=== PATIENT | male | born 1960 | race Caucasian/White ===

== ENCOUNTER 2016-12-08 16:44 | Emergency (ER) | payer OTHER ==
[~2016-12-08] VITALS: Ht 160 cm; Wt 91.7 kg
[~2016-12-08 16:44] MED LIST: AMLO-114 PO; ASPCH81X PO; LISI20TA3 PO; LPR25 PO; OMEP40CA PO; SUCR1TAB29 PO; ZNTT/150 PO
[2016-12-08 16:55] VITALS: TEMP 36.9; Ht 160 cm; Wt 91.7 kg
[2016-12-08] MEDS ORDERED: CLOP1TAB15 PO (16:55)
[2016-12-08] MEDS ORDERED: HYDR-4715 PO (16:55)
--- NOTE | 2016-12-08 17:14 | DIAGNOSTIC IMAGING REPORT ---
CHEST ONE VIEW PORTABLE CLINICAL HISTORY: Evaluate Fever/Sepsis dyspnea COMPARISON STUDY: 01/10/2016 FINDINGS: The bones soft tissues and hemidiaphragms are normal. The cardiomediastinal silhouette is normal. The lungs are clear. The pulmonary vasculature is normal. IMPRESSION: Negative chest. Electronically signed by: Rich Avitia M.D. 12/08/2016 5:13 PM Dictated Date/Time: 12/08/2016 5:12 PM
[2016-12-08 17:21] LABS: BASO % 0.5 %; BASO ABS # 0.03 K/uL (0-0.2); COMPLETE YES; EOS % 0.6 %; HEMATOCRIT 39.5 % (42-52); IG% 0.2 %; LYMPH % 16.2 %; LYMPH ABS # 1.05 K/uL (1.2-3.4); MEAN CELL VOLUME 81.6 fL (80-100); MEAN CORPUSCULAR HEMOGLOBIN 26.9 pg (25-34); MEAN CORPUSCULAR HGB CONC 32.9 g/dl (32-36); MEAN PLATELET VOLUME 10.5 fL (7.4-10.4); MONO % 13.2 %; NEUT % 69.3 %; PLATELET COUNT 332 K/uL (130-400); RED BLOOD COUNT 4.84 M/uL (4.7-6.1)
[2016-12-08 17:37] LABS: ALT/SGPT 17 U/L (12-78); AST/SGOT 13 U/L (15-37); BLOOD UREA NITROGEN 15 mg/dl (7-18); BUN/CREATININE RATIO 12.4 (10-20); CALCIUM 8.7 mg/dl (8.5-10.1); CARBON DIOXIDE 25 mmol/L (21-32); CHLORIDE 109 mmol/L (98-107); GLUCOSE 89 mg/dl (70-99); POTASSIUM 4.4 mmol/L (3.5-5.1); SODIUM 142 mmol/L (136-145)
[2016-12-08 17:48] LABS: ALKALINE PHOSPHATASE 109 U/L (45-117)
--- NOTE | 2016-12-08 17:50 | EMERGENCY ROOM VISIT NOTE ---
History Report prepared by Zahira: Deepka Bee Under the Supervision of: Dr. Ivan Knight D.O. First contact with patient: 16:51 Chief Complaint: CHEST PAIN Stated Complaint: CHEST PAIN Nursing Triage Summary: Pt having chest pain accompanied with shortness of breath. Chest briefly relieved with Nitro SL. PMH: [place], CVA, Aneurysm (Chest, head and abdomen per patient) History of Present Illness The patient is a 56 year old male who presents to the Emergency Room from the [facility] facility with complaints of resolving chest pain that started around 2 hours ago. He says he was getting in the shower when he got the chest pain. The patient notes that he was also short of breath and had pain going down his left arm. Per the nursing staff, the chest pain was relieved by Nitro. Currently, the patient says his pain is not bad. The patient has a history of a myocardial infarction, stroke, and aneurysm. Source of History: patient Onset: Around 2 hours ago Position: chest Timing: other (resolving) Modifying Factors (Relieving): other (Nitro) Associated Symptoms: + SOB Note: Associated symptoms: Pain down left arm. Review of Systems See HPI for pertinent positives & negatives. A total of 10 systems reviewed and were otherwise negative. Past Medical & Surgical Medical Problems: (1) Acute right-sided weakness (2) Chest pain (3) Left sided cerebral hemisphere cerebrovascular accident Family History Stroke Social History Smoking Status: Former Smoker Drug Use: none Occupation Status: other Current/Historical Medications Scheduled Amlodipine (Norvasc), 10 MG PO DAILY Clopidogrel (Plavix), 75 MG PO DAILY Hydralazine Hcl (Apresoline), 10 MG PO BID Lisinopril (Prinivil), 20 MG PO BID Metoprolol Tartrate (Lopressor), 50 MG PO BID Ranitidine (Zantac), 150 MG PO BID Allergies Coded Allergies: Hydrocodone (Verified Allergy, Unknown, unknown, 12/08/16) Tramadol (Verified Allergy, Unknown, unknown, 12/08/16) Physical Exam Vital Signs Date Time Temp Pulse Resp B/P Pulse Ox O2 Delivery O2 Flow Rate FiO2 12/08/16 18:02 73 18 112/80 96 12/08/16 16:55 36.9 63 18 118/84 100 Room Air Physical Exam CONSTITUTIONAL/VITAL SIGNS: Reviewed / noted above. GENERAL: Non-toxic in appearance. INTEGUMENTARY: Warm, dry, and [place]. HEAD: Normocephalic. EYES: without scleral icterus or trauma. ENT/OROPHARYNX: clear and moist. LYMPHADENOPATHY/NECK: Is supple without lymphadenopathy or meningismus. RESPIRATORY: Lungs clear and equal. CARDIOVASCULAR: Regular rate and rhythm. GI/ABDOMEN: Soft and nontender. No organomegaly or pulsatile mass. No rebound or guarding. Normal bowel sounds. EXTREMITIES: Warm and well perfused. BACK: No CVA tenderness. NEUROLOGICAL: Intact without focal deficits. PSYCHIATRIC: normal affect. MUSCULOSKELETAL: Normally developed with good muscle tone. Medical Decision & Procedures ER Provider Diagnostic Interpretation: X ray results and stated below per my interpretation and radiology interpretation. CHEST ONE VIEW PORTABLE CLINICAL HISTORY: Evaluate Fever/Sepsis dyspnea COMPARISON STUDY: 01/10/2016 FINDINGS: The bones soft tissues and hemidiaphragms are normal. The cardiomediastinal silhouette is normal. The lungs are clear. The pulmonary vasculature is normal. IMPRESSION: Negative chest. Electronically signed by: Rich Avitia M.D. 12/08/2016 5:13 PM Dictated Date/Time: 12/08/2016 5:12 PM Laboratory Results 12/08/16 17:05 Red Blood Count 4.84, Mean Corpuscular Volume 81.6, Mean Corpuscular Hemoglobin 26.9, Mean Corpuscular Hemoglobin Concent 32.9, Mean Platelet Volume 10.5, Neutrophils (%) (Auto) 69.3, Lymphocytes (%) (Auto) 16.2, Monocytes (%) (Auto) 13.2, Eosinophils (%) (Auto) 0.6, Basophils (%) (Auto) 0.5, Neutrophils # (Auto ) 4.51, Lymphocytes # (Auto) 1.05, Monocytes # (Auto) 0.86, Eosinophils # (Auto ) 0.04, Basophils # (Auto) 0.03 12/08/16 17:05 Test 12/08/16 17:05 12/08/16 17:28 White Blood Count 6.50 K/uL (4.8-10.8) Red Blood Count 4.84 M/uL (4.7-6.1) Hemoglobin 13.0 g/dL (14.0-18.0) Hematocrit 39.5 % (42-52) Mean Corpuscular Volume 81.6 fL (80-100) Mean Corpuscular Hemoglobin 26.9 pg (25-34) Mean Corpuscular Hemoglobin Concent 32.9 g/dl (32-36) Platelet Count 332 K/uL (130-400) Mean Platelet Volume 10.5 fL (7.4-10.4) Neutrophils (%) (Auto) 69.3 % Lymphocytes (%) (Auto) 16.2 % Monocytes (%) (Auto) 13.2 % Eosinophils (%) (Auto) 0.6 % Basophils (%) (Auto) 0.5 % Neutrophils # (Auto) 4.51 K/uL (1.4-6.5) Lymphocytes # (Auto) 1.05 K/uL (1.2-3.4) Monocytes # (Auto) 0.86 K/uL (0.11-0.59) Eosinophils # (Auto) 0.04 K/uL (0-0.5) Basophils # (Auto) 0.03 K/uL (0-0.2) RDW Standard Deviation 42.9 fL (36.4-46.3) RDW Coefficient of Variation 14.4 % (11.5-14.5) Immature Granulocyte % (Auto) 0.2 % Immature Granulocyte # (Auto) 0.01 K/uL (0.00-0.02) Anion Gap 8.0 mmol/L (3-11) Est Creatinine Clear Calc Drug Dose 69.7 ml/min Estimated GFR () 78.4 Estimated GFR (Non- 67.7 BUN/Creatinine Ratio 12.4 (10-20) Calcium Level 8.7 mg/dl (8.5-10.1) Total Bilirubin 1.0 mg/dl (0.2-1) Direct Bilirubin 0.2 mg/dl (0-0.2) Aspartate Amino Transf (AST/SGOT) 13 U/L (15-37) Alanine Aminotransferase (ALT/SGPT) 17 U/L (12-78) Alkaline Phosphatase 109 U/L (45-117) Total Creatine Kinase 95 U/L (39-308) Creatine Kinase MB < 0.5 ng/ml (0.5-3.6) Creatine Kinase MB Ratio (0-3.0) Troponin I < 0.015 ng/ml (0-0.045) Total Protein 7.4 gm/dl (6.4-8.2) Albumin 3.8 gm/dl (3.4-5.0) Lipase 146 U/L (73-393) Thyroid Stimulating Hormone (TSH) 2.310 uIu/ml (0.300-4.500) Laboratory results as stated above per my review. ECG Indication: chest pain Rate (beats per minute): 59 Rhythm: sinus rhythm Findings: no ectopy, other (no acute injury) ED Course 170: Previous medical records were reviewed. The patient was evaluated in room A2. A complete history and physical examination was performed. 175: On reevaluation, the patient is resting comfortably. I discussed the results and findings with the patient. He verbalized agreement of the treatment plan. He was discharged home. Medical Decision the differential was considered includes acute myocardial infarction, acute coronary syndrome, myocarditis, pericarditis, pericardial effusions /tamponade, esophageal perforation, thoracic aortic dissection, pulmonary embolism, pneumonia, pneumothorax, pancreatitis, shingles, acute cholecystitis, perforated abdominal viscus. Medication Reconciliation: I attest that I have personally reviewed the patient' s current medication list. Blood pressure Screening: Patient was found to have normal blood pressure on screening and does not require follow-up. This is a 56-year-old male who presents to the ED with a chief complaint of chest pain and shortness of breath. The patient states the symptoms started around 3 PM. They improved after some nitroglycerin. The patient states that his symptoms also multiple left arm. He was transported here by EMS. He was given the nitroglycerin by them. The patient has a normal exam. He is in no distress. His 12-lead EKG reveals a normal sinus rhythm without acute injury or ectopy. Chest x-ray did not show acute disease. CBC and complete metabolic panel are normal. Troponin is negative. The patient was told the results. He is felt to be stable for discharge and outpatient follow-up. Impression Primary Impression: Retrosternal chest pain Scribe Attestation The scribe's documentation has been prepared under my direction and personally reviewed by me in its entirety. I confirm that the note above accurately reflects all work, treatment, procedures, and medical decision making performed by me. Departure Information Dispostion Home / Self-Care Referrals Margaret MEREDITH (PCP) Patient Instructions Chest Pain - [facility], [facility] Additional Instructions Follow-up with your doctor for further care and evaluation in 1-2 days. Return to the emergency department for worsening or new symptoms or any concerns. You have been examined and treated today on an emergency basis only. This is not a substitute for, or an effort to provide, complete comprehensive medical care. It is impossible to recognize and treat all injuries or illnesses in a single emergency department visit. It is therefore important that you follow up closely with your doctor. Call as soon as possible for an appointment.
[2016-12-08 18:02] VITALS: BP 112/80; PULSE 73; O2SAT 96
[2017-04-02] MEDS ORDERED: VERA1TAB52 PO (12:53)
[2017-04-02] MEDS ORDERED: ONDA8TAB62 SL (12:53)
[2017-04-02] MEDS ORDERED: ASPEC81 PO (12:53)
[2017-04-02] MEDS ORDERED: LPR25 PO (12:53)
[2017-04-02] MEDS ORDERED: METH4PAK PO (12:53)
[2017-04-02] MEDS ORDERED: BUTA1CAP17 PO (12:53)
[2017-04-02] MEDS ORDERED: LPT40 PO (12:53)
[2017-04-02] MEDS ORDERED: LISI20TA3 PO (12:53)
== END 2016-12-08 18:07 | disposition home or self-care (01) ==
LOC: EDBD 16:44 → C.EDA 16:46
DX: R07.2 Precordial pain (principal); Z86.73 Personal history of transient ischemic attack (TIA), and cerebral infarction without residual deficits; Z87.891 Personal history of nicotine dependence; Z79.899 Other long term (current) drug therapy; Z88.5 Allergy status to narcotic agent; Z88.8 Allergy status to other drugs, medicaments and biological substances; Z82.3 Family history of stroke

== ENCOUNTER 2017-03-29 17:42 | Observation (INO) | payer OTHER ==
[~2017-03-29] VITALS: Ht 160 cm; Wt 93.8 kg
[~2017-03-29 17:42] MED LIST changes: -ASPCH81X PO; +CLOP1TAB15 PO; +HYDR-4715 PO; -OMEP40CA PO; -SUCR1TAB29 PO
[2017-03-29] MEDS ORDERED: SODIUM CHLORIDE 0.9% 1000ML 1,000 ML IV SCH (18:18)
--- NOTE | 2017-03-29 18:38 | EMERGENCY ROOM VISIT NOTE ---
History First contact with patient: 18:01 Chief Complaint: NEURO SYMPTOMS Stated Complaint: CVA SX Nursing Triage Summary: Pt arrives by ALS from [facility] for right facial numbness and right hand numbness, left sided headache. Vision decreased in ight eye per pt. Symptom started yesterday, not improving. Pt AAO x4. Pt reports Stroke last January, deficits to right arm and right leg from that. Pt is to be on Plavix but has refused to take since Aug. "All that did was give me nosebleeds". Hx HTN History of Present Illness This patient is a 56-year-old male that presents to the emergency department with complaints of right-sided facial and hand numbness and slurred speech that he noticed last night before bed. He also woke up with a headache this morning at approximately 9 AM. He is experiencing the headache on the left side of his head. He denies any visual disturbances. No chest pain or shortness of breath. No heart palpitations. He is also experiencing blurred vision in the right eye. The patient does have a history of a stroke approximately 1 year ago. He has residual right-sided weakness from his stroke. Review of Systems 10 system review performed and negative unless noted in HPI or below Past Medical/Surgical History Medical Problems: (1) Acute right-sided weakness (2) Chest pain (3) CVA (cerebral vascular accident) (4) Left sided cerebral hemisphere cerebrovascular accident Family History Stroke Social History Smoking Status: Former Smoker Drug Use: none Occupation Status: other Current/Historical Medications Scheduled Amlodipine (Norvasc), 10 MG PO DAILY Clopidogrel (Plavix), 75 MG PO DAILY Hydralazine Hcl (Apresoline), 10 MG PO BID Lisinopril (Prinivil), 20 MG PO BID Metoprolol Tartrate (Lopressor), 50 MG PO BID Physical Exam Vital Signs Date Time Temp Pulse Resp B/P (MAP) Pulse Ox O2 Delivery O2 Flow Rate FiO2 03/29/17 19:39 66 18 135/96 94 Room Air 03/29/17 19:09 67 03/29/17 17:59 37.0 84 18 157/104 96 Room Air 03/29/17 17:59 97 Room Air Physical Exam VITALS: Vitals are noted on the nurse's note and reviewed by myself. Vital signs stable. GENERAL: 56-year-old male, in no acute distress, nondiaphoretic, well-developed well-nourished. SKIN: The skin was without rashes, erythema, edema, or bruising. HEAD: Normocephalic atraumatic. EARS: External auditory canals clear, tympanic membranes pearly ruelas without erythema or effusion bilaterally. EYES: Pupils equal round and reactive to light and accommodation. Extraocular movements intact. MOUTH: Tongue deviation noted to the right NECK: No JVD. HEART: Regular rate and rhythm without murmurs gallops or rubs. LUNGS: Clear to auscultation bilaterally without wheezes, rales or rhonchi. No accessory muscle use. ABDOMEN: Positive bowel sounds x 4.Soft, nontender, without organomegaly. No guarding or rebound tenderness. MUSCULOSKELETAL: +1 nonpitting edema in the lower extremities without any erythema, tenderness or warmth appreciated. NEURO: Patient was alert and oriented to person place and time. Slurred speech noted. Left facial droop noted. Tongue deviation as noted above. Right arm and right leg weakness noted-patient says this is not new. Medical Decision & Procedures ER Provider Diagnostic Interpretation: Patient Name: IRSAEL JENNINGS [id number] Unit Number: [id number] Dictated: 03/29/171922 Transcribed: 03/29/171922 MS Printed Date/Time: [~ rep prt dt]/[~ rep prt tm] [~ rep ct labl] - [~ rep ct ivnm] [facility] [place] [address] Dictated: 03/29/171922 Transcribed: 03/29/171922 MS Printed Date/Time: [~ rep prt dt]/[~ rep prt tm] [~ rep ct labl] - [~ rep ct ivnm] HEAD WITHOUT CONTRAST (CT) CT DOSE: 601.98 mGy.cm HISTORY: Mental status change Stroke TECHNIQUE: Multiaxial CT images of the head were performed without the use of intravenous contrast. A dose lowering technique was utilized adhering to the principles of ALARA. Comparison: 02/10/2016 Findings: The paranasal sinuses and mastoid air cells are clear. Old right cerebellar infarct. Normal density characteristics of the cerebellar as well as cerebral hemispheres. No evidence for acute intracranial hemorrhage. Impression: No acute process. No change from the prior exam. The above report was generated using voice recognition software. It may contain grammatical, syntax or spelling errors. Electronically signed by: Rich Avitia M.D. 03/29/2017 7:24 PM Dictated Date/Time: 03/29/2017 7:23 PM The status of this report is Signed. Draft = Not yet reviewed or approved by Radiologist. Signed = Reviewed and approved by Radiologist. <AttendingPhy></AttendingPhy> <FamilyPhy>SCI,Margaret</FamilyPhy> <PrimaryPhy>SCI, Margaret</PrimaryPhy> <UnitNumber>[id number]</UnitNumber> <VisitNumber> [id number]</VisitNumber> <PatientName>ISRAEL JENNINGS [id number]</PatientName> < DateOfBirth>1960</DateOfBirth> <Location>[facility]</Location> <ServiceDate></ServiceDate> <MNE>ESINDI</MNE> <OrderingPhy>Tiffany Gao PA-C</ OrderingPhy> <OrderingPhyMNE>f rep ord dr virgen</OrderingPhyMNE> <DictatingPhyMNE> f rep dict dr virgen</DictatingPhyMNE> <CCListMNE>f rep ct mne</CCListMNE> < AdmittingPhyMNE>f pt admit dr virgen</AdmittingPhyMNE> <AttendingPhyMNE>f pt attend dr virgen</AttendingPhyMNE> <ConsultingPhyMNE>f pt consult dr virgen</ConsultingPhyMNE> <FamilyPhyMNE>f pt fam dr virgen</FamilyPhyMNE> <OtherPhyMNE>f pt other dr virgen</OtherPhyMNE> < PrimaryPhyMNE>f pt prim care dr virgen</PrimaryPhyMNE> <ReferringPhyMNE>f pt referring dr virgen</ReferringPhyMNE> Patient Name: ISRAEL JENNINGS [id number] Unit Number: [id number] Dictated: 03/29/171914 Transcribed: 03/29/171914 MS Printed Date/Time: [~ rep prt dt]/[~ rep prt tm] [~ rep ct labl] - [~ rep ct ivnm] [facility] [place] [address] Dictated: 03/29/171914 Transcribed: 03/29/171914 MS Printed Date/Time: [~ rep prt dt]/[~ rep prt tm] [~ rep ct labl] - [~ rep ct ivnm] CHEST ONE VIEW PORTABLE CLINICAL HISTORY: cava sx mental status change COMPARISON STUDY: 12/08/2016 FINDINGS: The bones soft tissues and hemidiaphragms are normal. The cardiomediastinal silhouette is normal. The lungs are clear. The pulmonary vasculature is normal. IMPRESSION: Negative chest. The above report was generated using voice recognition software. It may contain grammatical, syntax or spelling errors. Electronically signed by: Rich Avitia M.D. 03/29/2017 7:15 PM Dictated Date/Time: 03/29/2017 7:15 PM The status of this report is Signed. Draft = Not yet reviewed or approved by Radiologist. Signed = Reviewed and approved by Radiologist. <AttendingPhy></AttendingPhy> <FamilyPhy>SCIAlmasMargaret</FamilyPhy> <PrimaryPhy>SCIAlmasMargaret</PrimaryPhy> <UnitNumber>[id number]</UnitNumber> <VisitNumber> [id number]</VisitNumber> <PatientName>ISRAEL JENNINGS [id number]</PatientName> < DateOfBirth>1960</DateOfBirth> <Location>[facility]</Location> <ServiceDate></ServiceDate> <MNE>ESINDI</MNE> <OrderingPhy>Tiffany Gao PA-C</ OrderingPhy> <OrderingPhyMNE>f rep ord dr virgen</OrderingPhyMNE> <DictatingPhyMNE> f rep dict dr virgen</DictatingPhyMNE> <CCListMNE>f rep ct christophere</CCListMNE> < AdmittingPhyMNE>f pt admit dr virgen</AdmittingPhyMNE> <AttendingPhyMNE>f pt attend dr virgen</AttendingPhyMNE> <ConsultingPhyMNE>f pt consult dr virgen</ConsultingPhyMNE> <FamilyPhyMNE>f pt fam dr virgen</FamilyPhyMNE> <OtherPhyMNE>f pt other dr virgen</OtherPhyMNE> < PrimaryPhyMNE>f pt prim care dr virgen</PrimaryPhyMNE> <ReferringPhyMNE>f pt referring dr virgen</ReferringPhyMNE> Laboratory Results 03/29/17 18:45 Red Blood Count 4.92, Mean Corpuscular Volume 81.7, Mean Corpuscular Hemoglobin 26.4, Mean Corpuscular Hemoglobin Concent 32.3, Mean Platelet Volume 10.2, Neutrophils (%) (Auto) 58.5, Lymphocytes (%) (Auto) 27.4, Monocytes (%) (Auto) 12.5, Eosinophils (%) (Auto) 1.0, Basophils (%) (Auto) 0.4, Neutrophils # (Auto ) 2.95, Lymphocytes # (Auto) 1.38, Monocytes # (Auto) 0.63, Eosinophils # (Auto ) 0.05, Basophils # (Auto) 0.02 03/29/17 18:45 Test 03/29/17 18:45 White Blood Count 5.04 K/uL (4.8-10.8) Red Blood Count 4.92 M/uL (4.7-6.1) Hemoglobin 13.0 g/dL (14.0-18.0) Hematocrit 40.2 % (42-52) Mean Corpuscular Volume 81.7 fL (80-100) Mean Corpuscular Hemoglobin 26.4 pg (25-34) Mean Corpuscular Hemoglobin Concent 32.3 g/dl (32-36) Platelet Count 365 K/uL (130-400) Mean Platelet Volume 10.2 fL (7.4-10.4) Neutrophils (%) (Auto) 58.5 % Lymphocytes (%) (Auto) 27.4 % Monocytes (%) (Auto) 12.5 % Eosinophils (%) (Auto) 1.0 % Basophils (%) (Auto) 0.4 % Neutrophils # (Auto) 2.95 K/uL (1.4-6.5) Lymphocytes # (Auto) 1.38 K/uL (1.2-3.4) Monocytes # (Auto) 0.63 K/uL (0.11-0.59) Eosinophils # (Auto) 0.05 K/uL (0-0.5) Basophils # (Auto) 0.02 K/uL (0-0.2) RDW Standard Deviation 43.4 fL (36.4-46.3) RDW Coefficient of Variation 14.6 % (11.5-14.5) Immature Granulocyte % (Auto) 0.2 % Immature Granulocyte # (Auto) 0.01 K/uL (0.00-0.02) Prothrombin Time 10.8 SECONDS (9.0-12.0) Prothromb Time International Ratio 1.0 (0.9-1.1) Activated Partial Thromboplast Time 24.3 SECONDS (21.0-31.0) Partial Thromboplastin Ratio 0.9 Anion Gap 6.0 mmol/L (3-11) Est Creatinine Clear Calc Drug Dose 91.9 ml/min Estimated GFR () 112.6 Estimated GFR (Non- 97.2 BUN/Creatinine Ratio 14.9 (10-20) Calcium Level 9.4 mg/dl (8.5-10.1) Total Creatine Kinase 108 U/L (39-308) Creatine Kinase MB < 0.5 ng/ml (0.5-3.6) Creatine Kinase MB Ratio (0-3.0) Troponin I < 0.015 ng/ml (0-0.045) Medications Administered Medications (Trade) Dose Ordered Sig/Veronica Route Start Time Stop Time Status Last Admin Dose Admin Sodium Chloride 1,000 ml @ 50 mls/hr Q20H IV 03/29/17 18:18 03/29/17 23:32 DC 03/29/17 18:51 50 MLS/HR Aspirin (Aspirin Chew) 324 mg NOW STAT PO 03/29/17 19:46 03/29/17 19:49 DC 03/29/17 20:12 324 MG ECG Indication: other Rate (beats per minute): 65 Rhythm: normal sinus Change: no significant change ED Course Patient was seen and examined Vital signs including blood pressure were reviewed EKG was performed and he was put on a monitor The patient was taken for a head CT He was given 1 dose of aspirin 324 mg medications list was verified with patient Labs were obtained, and a saline lock was established The workup was reviewed with my supervising physician who personally evaluated the patient The patient was reassessed. The findings were discussed. [facility] the patient for further workup. Medical Decision Differential diagnosis: CVA, TIA, Oropeza's palsy, demyelinating process, like to light balance, dehydration, cardiac arrhythmia This patient is a 56-year-old male that presents the emergency department with right-sided facial numbness and right hand numbness. In addition he notes slurred speech. On exam, the patient had a left-sided facial droop. He had right tongue deviation concerning for a left-sided CVA. The patient does have a history of a left-sided cerebellar CVA. He has residual right-sided weakness. It was difficult to assess him for weakness on exam. He has apparently not been compliant with antiplatelet therapy. Unfortunately, given that his onset of symptoms was last night, the patient is not a TPA candidate. Given the concern for a new CVA, the patient will require admission for further workup and treatment. Medication Reconcilliation Current Medication List: was personally reviewed by me Blood Pressure Screening Patient's blood pressure: Elevated blood pressure Impression Primary Impression: CVA (cerebral vascular accident) Departure Information Referrals Margaret MEREDITH (PCP) Patient Instructions My [facility]
--- NOTE | 2017-03-29 19:17 | DIAGNOSTIC IMAGING REPORT ---
CHEST ONE VIEW PORTABLE CLINICAL HISTORY: cava sx mental status change COMPARISON STUDY: 12/08/2016 FINDINGS: The bones soft tissues and hemidiaphragms are normal. The cardiomediastinal silhouette is normal. The lungs are clear. The pulmonary vasculature is normal. IMPRESSION: Negative chest. The above report was generated using voice recognition software. It may contain grammatical, syntax or spelling errors. Electronically signed by: Rich Avitia M.D. 03/29/2017 7:15 PM Dictated Date/Time: 03/29/2017 7:15 PM
--- NOTE | 2017-03-29 19:26 | DIAGNOSTIC IMAGING REPORT ---
HEAD WITHOUT CONTRAST (CT) CT DOSE: 601.98 mGy.cm HISTORY: Mental status change Stroke TECHNIQUE: Multiaxial CT images of the head were performed without the use of intravenous contrast. A dose lowering technique was utilized adhering to the principles of ALARA. Comparison: 02/10/2016 Findings: The paranasal sinuses and mastoid air cells are clear. Old right cerebellar infarct. Normal density characteristics of the cerebellar as well as cerebral hemispheres. No evidence for acute intracranial hemorrhage. Impression: No acute process. No change from the prior exam. The above report was generated using voice recognition software. It may contain grammatical, syntax or spelling errors. Electronically signed by: Rich Avitia M.D. 03/29/2017 7:24 PM Dictated Date/Time: 03/29/2017 7:23 PM
[2017-03-29 19:35] LABS: BASO % 0.4 %; BASO ABS # 0.02 K/uL (0-0.2); COMPLETE YES; HEMATOCRIT 40.2 % (42-52); IG% 0.2 %; LYMPH % 27.4 %; LYMPH ABS # 1.38 K/uL (1.2-3.4); MEAN CELL VOLUME 81.7 fL (80-100); MEAN CORPUSCULAR HEMOGLOBIN 26.4 pg (25-34); MEAN CORPUSCULAR HGB CONC 32.3 g/dl (32-36); MEAN PLATELET VOLUME 10.2 fL (7.4-10.4); MONO % 12.5 %; NEUT % 58.5 %; PLATELET COUNT 365 K/uL (130-400); RED BLOOD COUNT 4.92 M/uL (4.7-6.1); WHITE BLOOD COUNT 5.04 K/uL (4.8-10.8)
[2017-03-29] MEDS ORDERED: ASPIRIN 324 MG CHEW PO STA (19:46)
[2017-03-29 19:47] LABS: PARTIAL THROMBOPLASTIN RATIO 0.9; PROTHROMBIN TIME (PATIENT) 10.8 SECONDS (9.0-12.0)
[2017-03-29 20:01] LABS: BLOOD UREA NITROGEN 13 mg/dl (7-18); BUN/CREATININE RATIO 14.9 (10-20); CALCIUM 9.4 mg/dl (8.5-10.1); CARBON DIOXIDE 25 mmol/L (21-32); CHLORIDE 107 mmol/L (98-107); CREATININE 0.87 mg/dl (0.60-1.40); GLUCOSE 88 mg/dl (70-99); POTASSIUM 3.7 mmol/L (3.5-5.1); SODIUM 138 mmol/L (136-145)
--- NOTE | 2017-03-29 20:16 | EMERGENCY ROOM VISIT NOTE ---
ED Visit Note First contact with patient: 18:01 Staff note: I have reviewed the Patients chart and have discussed this case with my PA. I generally agree with the ED note and findings.
[2017-03-29] MEDS ORDERED: POLYETHYLENE (MIRALAX) 17 GM PACK PO PRN (21:00)
[2017-03-29] MEDS ORDERED: MoRPHine SULFATE 2 MG/ML CARP IV PRN (21:00)
[2017-03-29] MEDS ORDERED: PHARMACIST DISCHARGE MED REC CONSULT PRN (21:00)
[2017-03-29] MEDS ORDERED: ALUMINUM/MAGNESIUM/SIMETH (MAALOX MAX) 30 ML UDC PO PRN (21:00)
[2017-03-29] MEDS: METOPROLOL TARTRATE 50 MG TAB PO SCH (21:00)
[2017-03-29] MEDS ORDERED: MAGNESIUM HYDROXIDE SUSP 30 ML UDC PO PRN (21:00)
[2017-03-29] MEDS ORDERED: LORAZEPAM INJ 1 MG in SYRINGE 0.5 ML IV STA (21:32)
[2017-03-29] MEDS ORDERED: LORAZEPAM 2 MG/ML 1 ML VIAL ONE (21:40)
[2017-03-29] MEDS ORDERED: LORAZEPAM INJ 0.5 MG in SYRINGE 0.25 ML IV STA (22:02)
[2017-03-29] MEDS ORDERED: IV FLUIDS COMPLETED PRN (22:15)
--- NOTE | 2017-03-29 23:02 | History and Physical ---
History & Physical Date & Time of Service: Mar 29, 2017 at 22:25 Chief Complaint: Cva Sx Primary Care Physician: Margaret MEREDITH History of Present Illness Source: patient 56 y/o M Hx CVA, HTN, HPL. Pt reports 2 prior CVAs 2014, 2016 - residual R sided weakness. Resides at the local [facility] where he had complained of R sided facial numbness. Denies new visual changes, RENNER, increased R sided weakness, slurred speech or confusion. The pt is prescribed Plavix but does not comply with this due to epistaxis. He states that this occurs with ASA also. Initial examination reveals impairment to light touch on R and marked tongue deviation to the R. Interestingly, he appears to be developing L facial nerve impairment with asymmetry and L ptosis. Past Medical/Surgical History 1) CVA 2015, 2016 R sided extrem weakness 2) HTN 3) HPL 4) Epistaxis - medical noncompliance with antiplatelet therapy due to epistaxis Family History Stroke Social History Smoking Status: Former Smoker Drug Use: none Housing status: other Occupational Status: other Multi-Drug Resistant Organisms History of MDRO: No Allergies Coded Allergies: Hydrocodone (Verified Allergy, Unknown, unknown, 12/08/16) Tramadol (Verified Allergy, Unknown, unknown, 12/08/16) Home Medications Scheduled Amlodipine (Norvasc), 10 MG PO DAILY Clopidogrel (Plavix), 75 MG PO DAILY Hydralazine Hcl (Apresoline), 10 MG PO BID Lisinopril (Prinivil), 20 MG PO BID Metoprolol Tartrate (Lopressor), 50 MG PO BID Review of Systems Constitutional: No fever, No chills, No sweats Eyes: No worsening of vision ENT: No hearing loss, No unusual epistaxis, No nasal symptoms Respiratory: No cough, No sputum, No wheezing Cardiovascular: No chest pain, No orthopnea, No PND Abdomen: No pain, No nausea, No vomiting Musculoskeletal: No joint pain, No muscle pain Genitourinary - Male: No hematuria, No dysuria, No urinary frequency Neurologic: + weakness, + numbness/tingling (R face numb as above), No memory loss Endocrine: No fatigue Hematologic / Lymphatic: + abnormal bleeding/bruising (reports frequent epistaxis) Integumentary: No rash Allergic / Immunologic: No environmental allergies Physical Exam Vital Signs Date Time Temp Pulse Resp B/P (MAP) Pulse Ox O2 Delivery O2 Flow Rate FiO2 03/29/17 21:47 76 18 159/100 96 Room Air 03/29/17 21:01 78 20 122/100 95 Room Air 03/29/17 19:39 66 18 135/96 94 Room Air 03/29/17 19:09 67 03/29/17 17:59 37.0 84 18 157/104 96 Room Air 03/29/17 17:59 97 Room Air General Appearance: WD/WN, no apparent distress Head: + pertinent finding (facial asymmetry present) Eyes: PERRL, + pertinent finding (L ptosis) ENT: normal ENT inspection, hearing grossly normal, pharynx normal Neck: supple, no JVD Respiratory/Chest: chest non-tender, lungs clear, normal breath sounds Cardiovascular: regular rate, rhythm, no edema, no gallop Abdomen/GI: normal bowel sounds, non tender, soft Back: normal inspection, no CVA tenderness, no muscle spasm, normal range of motion Extremities/Musculoskelatal: normal inspection, no calf tenderness, normal capillary refill Neurologic/Psych: oriented x 3, + pertinent finding (Pt is fully oriented - there is impairmanent of light touch on R side of face - there is L ptosis and L facial weakness - perioral - vision is intact, coord/sensation/strength is intact on L - chronically weak on R ) Skin: normal color, warm/dry Diagnostics Laboratory Results Results Past 24 Hours Test 03/29/17 18:45 Range/Units White Blood Count 5.04 4.8-10.8 K/uL Red Blood Count 4.92 4.7-6.1 M/uL Hemoglobin 13.0 14.0-18.0 g/dL Hematocrit 40.2 42-52 % Mean Corpuscular Volume 81.7 80-100 fL Mean Corpuscular Hemoglobin 26.4 25-34 pg Mean Corpuscular Hemoglobin Concent 32.3 32-36 g/dl Platelet Count 365 130-400 K/uL Mean Platelet Volume 10.2 7.4-10.4 fL Neutrophils (%) (Auto) 58.5 % Lymphocytes (%) (Auto) 27.4 % Monocytes (%) (Auto) 12.5 % Eosinophils (%) (Auto) 1.0 % Basophils (%) (Auto) 0.4 % Neutrophils # (Auto) 2.95 1.4-6.5 K/uL Lymphocytes # (Auto) 1.38 1.2-3.4 K/uL Monocytes # (Auto) 0.63 0.11-0.59 K/uL Eosinophils # (Auto) 0.05 0-0.5 K/uL Basophils # (Auto) 0.02 0-0.2 K/uL RDW Standard Deviation 43.4 36.4-46.3 fL RDW Coefficient of Variation 14.6 11.5-14.5 % Immature Granulocyte % (Auto) 0.2 % Immature Granulocyte # (Auto) 0.01 0.00-0.02 K/uL Prothrombin Time 10.8 9.0-12.0 SECONDS Prothromb Time International Ratio 1.0 0.9-1.1 Activated Partial Thromboplast Time 24.3 21.0-31.0 SECONDS Partial Thromboplastin Ratio 0.9 Sodium Level 138 136-145 mmol/L Potassium Level 3.7 3.5-5.1 mmol/L Chloride Level 107 98-107 mmol/L Carbon Dioxide Level 25 21-32 mmol/L Anion Gap 6.0 3-11 mmol/L Blood Urea Nitrogen 13 7-18 mg/dl Creatinine 0.87 0.60-1.40 mg/dl Est Creatinine Clear Calc Drug Dose 91.9 ml/min Estimated GFR () 112.6 Estimated GFR (Non- 97.2 BUN/Creatinine Ratio 14.9 10-20 Random Glucose 88 70-99 mg/dl Calcium Level 9.4 8.5-10.1 mg/dl Total Creatine Kinase 108 39-308 U/L Creatine Kinase MB < 0.5 0.5-3.6 ng/ml Creatine Kinase MB Ratio 0-3.0 Troponin I < 0.015 0-0.045 ng/ml Diagnostic Radiology No new findings on CT head Normal EKG Impression Assessment and Plan 56 y/o M Hx CVA, HTN, HPL. Pt reports 2 prior CVAs 2014, 2016 - residual R sided weakness. Resides at the local [facility] where he had complained of R sided facial numbness which began up to 24 hours piror. Denies new visual changes, RENNER, increased R sided weakness, slurred speech or confusion. The pt is prescribed Plavix but does not comply with this due to epistaxis. He states that this occurs with ASA also. Initial examination reveals impairment to light touch on R and marked tongue deviation to the R. Interestingly, he appears to be developing L facial nerve impairment with asymmetry and L ptosis. 1) CVA - R facial numbness, tongue deviation - strength exam is largely subjective due to chronic deficits. The pt does not comply with antiplatelet therapy. Perhaps he would be best suited to follow-up with an ENT to evaluate his epistaxis and see if there is an area amenable to cauterization which continues to rebleed. There are no new abnormalities reported on CT which is unusual as his symptoms have been present for up to 24 hrs. Neurology consulted. He is admitted with a CVA protocol and placed back on Plavix in addition to a Statin which he should likely remain on. 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 Will follow for developing symptoms. The findings would not, logically, be related to his R sided symptoms. Due to the presence of b/l symptoms however, we will check a Lyme titer. 3) HTN - meds held in presence of acute CVA. Full code - Heparin prophylaxis Total time for this admit including review of labs, meds, imaging, EKG - discussion with pt and ER attending - 37 min VTE Prophylaxis VTE Risk Assessment Done? Y/N: Yes Risk Level: Moderate
[2017-03-30] VITALS (8 sets, daily range): BP systolic 111–152; BP diastolic 73–104; PULSE 56–74; TEMP 36.4–36.8; O2SAT 91–98; Ht 160 cm; Wt 93.8 kg
[2017-03-30] MEDS: HEPARIN SOD 5000 UNIT/0.5 ML CARP SQ SCH ×3 (05:36→21:59)
[2017-03-30 06:16] LABS: BASO % 1.3 %; BASO ABS # 0.05 K/uL (0-0.2); COMPLETE YES; EOS % 2.4 %; HEMATOCRIT 37.6 % (42-52); LYMPH % 29.6 %; MEAN CELL VOLUME 81.6 fL (80-100); MEAN CORPUSCULAR HEMOGLOBIN 25.8 pg (25-34); MEAN CORPUSCULAR HGB CONC 31.6 g/dl (32-36); MEAN PLATELET VOLUME 9.5 fL (7.4-10.4); MONO % 16.2 %; NEUT % 50.5 %; PLATELET COUNT 312 K/uL (130-400); RED BLOOD COUNT 4.61 M/uL (4.7-6.1); WHITE BLOOD COUNT 3.71 K/uL (4.8-10.8)
--- NOTE | 2017-03-30 06:32 | DIAGNOSTIC IMAGING REPORT ---
MRA OF THE INTRACRANIAL CIRCULATION WITHOUT CONTRAST CLINICAL HISTORY: Stroke - Attention to [place] [facility] [place]. COMPARISON STUDY: CTA of the head February 10, 2016. TECHNIQUE: Utilizing a 1.5 Maite magnet and 3-D [id number] technique, unenhanced MRA of the intracranial circulation was obtained. FINDINGS: The bilateral M1, M2, A1 and A2 segments are patent. No abrupt vessel cut off is identified. 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 No additional intracranial aneurysms are identified. Posterior circulation is intact. There is mild intracranial vascular irregularity. IMPRESSION: 1. No abrupt vessel cut off. 2. 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 Electronically signed by: Logan Weathers M.D. 03/30/2017 6:30 AM Dictated Date/Time: 03/30/2017 6:26 AM
[2017-03-30 06:36] LABS: ESTIMATED AVERAGE GLUCOSE 120 mg/dl; HA1C FLAG Normal (Normal)
[2017-03-30 06:53] LABS: BUN/CREATININE RATIO 14.8 (10-20); CALCIUM 8.9 mg/dl (8.5-10.1); CREATININE 0.8 mg/dl (0.60-1.40); POTASSIUM 3.5 mmol/L (3.5-5.1)
[2017-03-30 06:57] LABS: CHOLESTEROL/HDL RATIO 3.1
--- NOTE | 2017-03-30 07:21 | DIAGNOSTIC IMAGING REPORT ---
Brain MRI WITHOUT CONTRAST HISTORY: Stroke TECHNIQUE: Multiplanar multisequence MRI of the brain was performed without the use of contrast. COMPARISON STUDY: Head CT 03/29/2017. Brain MRI 02/10/2016. FINDINGS: There is no mass, hematoma, midline shift, or acute infarct. The paranasal sinuses are clear. A few opacified left mastoid air cells. Old bilateral basal ganglia lacunar infarcts.. The ventricles and sulci demonstrate mild age-related involutional changes. Scattered foci of T2 hyperintensity seen within the periventricular and subcortical white matter are nonspecific but suggestive of mild microvascular ischemic changes. The major vascular flow voids at the skull base are well-maintained. Small old infarct within the right cervical hemisphere. 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 IMPRESSION: No significant change compared to the prior study. No acute intracranial abnormality. Old small infarcts as described above. 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 Electronically signed by: Artem Dewitt M.D. 03/30/2017 7:19 AM Dictated Date/Time: 03/30/2017 7:14 AM
--- NOTE | 2017-03-30 07:38 | DIAGNOSTIC IMAGING REPORT ---
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 TECHNIQUE: MR angiography of the neck was performed before and after the administration of intravenous contrast. 3-D volumetric and/or maximum intensity projection (MIP) images were subsequently reconstructed for review. IV contrast: 8.5 mL of Gadavist.. Stenosis measurements were based on NASCET-like criteria. COMPARISON: CTA neck from 02/08/2017. FINDINGS: Localizer images: Unremarkable. Initial [id number] images demonstrate normal flow related enhancement in the cervical vessels. Slight dominance of the left vertebral artery. Subsequent postcontrast imaging demonstrates normal three-vessel aortic arch with patent origins of the branch vessels. Bilateral common and internal carotid arteries widely patent. Mild stenosis of the origin of the right vertebral artery, although the right vertebral artery remains patent along its cervical course. Origin and course of the left vertebral artery widely patent. Previously noted aneurysmal dilatation of the intracranial left vertebral artery again noted, which measures approximately 5 mm in diameter in comparison to the normal distal diameter of 3 mm. This has a primarily fusiform configuration. Delayed postcontrast imaging demonstrates patent cervical veins. IMPRESSION: 1. Mild stenosis of the origin of the right vertebral artery. 2. The remainder of the course of the right vertebral artery and the remaining cervical vessels are widely patent without significant stenosis, aneurysm, or focal vessel occlusion. 3. 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 Electronically signed by: Daniel Maurice M.D. 03/30/2017 7:37 AM Dictated Date/Time: 03/30/2017 7:29 AM
[2017-03-30] MEDS ORDERED: NURSING VERBAL MED ORDER ONE (08:30)
[2017-03-30] MEDS: METOPROLOL TARTRATE 50 MG TAB PO SCH ×2 (08:30→21:57)
[2017-03-30] MEDS: ATORVASTATIN 40 MG TAB PO SCH (08:30)
[2017-03-30] MEDS: ASPIRIN 81 MG ECTAB PO SCH (08:30)
--- NOTE | 2017-03-30 08:33 | Neurology Consultation ---
Neurology Consultation Date of Consultation: Mar 30, 2017. Attending Physician: Mariano Villanueva M.D. [facility] Reason for Consultation: Patient is a 56-year-old, who was asked to see the request of Dr. Villanueva, for neurologic consultation regarding stroke. History of Present Illness Source: patient, caregiver, hospital records Patient is an inmate at [facility]. Patient tells me that he has had a history of migraine headaches since his 30s. They would be variable over time averaging 2 per month or less then one year. Typically they would occur without warning or triggering factors. He would get bifrontal headache which would progress to a severe pounding bifrontal and left temporal pain accompanied by nausea, vomiting, photophobia, and sonophobia. They could last anywhere from hours to 10 days. His most recent migraine event was about 2 months ago. In 2008 the patient underwent gastric bypass procedure. His maximum weight was 300 pounds prior to surgery (an is minimum was 158 in 2012). Not too long after that he had a stroke involving right sided weakness and clumsiness. Proximally 1 year following his gastric bypass he had an episode of DVT in his leg. He was put on Coumadin which he took from 2009 until 2014. He was told at that time by a physician that he didn't need it any longer. He has had no blood clots since, that he is aware. Since 2009, the patient has had episodes occurring at an incidence of perhaps once every 6-8 months. These episodes consist of the onset of right arm and leg numbness (rarely on the face) and weakness of the right arm and leg. He would have a headache on the left side which was dull to significant, but never as severe as his typical migraines as noted above. He could get slurred speech or word finding difficulties or blurry vision. These episodes would last anywhere from 2 hours to 2 days. In January 2016, the patient was admitted to our institution with right-sided weakness and numbness. MRI of the brain showed an old right cerebellar infarct of the small nature. There was no acute CVA and there was very little in the way of old small vessel ischemic changes. CT angiography of the head and neck revealed a 5 mm aneurysm in the intracranial portion of the left vertebral artery. No other significant vessel stenosis was noted. EEG was unremarkable. Dr. Mcallister, in her evaluation, noted that the patient had an inconsistent exam and she was suspecting possible conversion disorder. She stated clearly and her note that there was no stroke. Nevertheless he was discharged with a diagnosis of stroke and put on aspirin and Plavix. The patient discontinued Plavix in August 2016 because of nosebleeds that were significant. He tells me that when he was on aspirin alone in the past, he did not have nosebleeds. He was on no antiplatelet medication before coming to our hospital yesterday. Patient was doing well until 3 or 4 in the afternoon of March 28. He had the onset of right cheek numbness and his tongue feeling "fat". He felt that his speech was slurred. By 7:30 in the evening, he noted that his right hand was tingly and he lay down. He had a left-sided headache as well. Around 9 in the evening he went to sit call and EKG apparently was unremarkable and he was given 1 baby aspirin. In the morning of March 29, he had a dull left-sided headache and had numbness in the face and arm on the right with some weakness in the arm. His speech was slurred and he had blurry vision in the right eye. He arrived at the emergency room on March 29 at 1759 hours with a temperature 37.0, pulse of 84 and regular, respiratory rate 18, blood pressure 157/104, and O2 saturation 96%. Exam of the ER noted some weakness of the right arm and leg and some slurred speech. Tongue was deviated to the right. 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 He also noted right-sided weakness and numbness. CT scan of the head was unremarkable for acute changes. Chest x-ray was unremarkable. CBC showed mild anemia. Chem profile was unremarkable and lipid profile showed cholesterol of 143. MRI of the brain showed no acute stroke. There was a small old right cerebellar CVA as before and minimal small vessel ischemic changes as before with no change. MR angiography of the head and neck showed the 5 mm distal vertebral aneurysm as before with no change. Again, there were no significant stenoses of vessels in the head or neck. This morning the patient feels about the same. He has a dull left sided headache with some numbness and tingling in his face and arm as well as some weakness in his right hand as before. He has no leg symptoms. His tone still feels "fat". 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 He had a stroke in his 60s Mother is alive at 74 with coronary artery disease and glaucoma Social History Patient smoked about a pack of cigarettes "per year" for most of his life including all cigarette smoking 2 years ago. Patient was an extremely heavy alcohol user in his 20s drinking 2-3 bottles of 5 Per week +2 cases of beer per week. He then went through a period of no alcohol use up until 2011 when he started drinking heavily again, finally quitting in 2014. He was arrested and incarcerated for the last 2 years. He is from [facility]. 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 Smoking Status: Former smoker Smokeless Tobacco Use: No Drug Use: none Housing Status: other Occupation Status: other Allergies Coded Allergies: Hydrocodone (Verified Allergy, Unknown, unknown, 12/08/16) Tramadol (Verified Allergy, Unknown, unknown, 12/08/16) Current Inpatient Medications Current Inpatient Medications Medications (Trade) Dose Ordered Sig/Veronica Route Start Time Stop Time Status Last Admin Dose Admin Clopidogrel Bisulfate (plAVix TAB) 75 mg DAILY PO 03/30/17 09:00 04/29/17 08:59 Metoprolol Tartrate (Lopressor Tab) 50 mg BID PO 03/29/17 21:00 04/28/17 20:59 Heparin Sodium (Porcine) (Heparin Sq 5000 Unit/0.5ml) 5,000 unit Q8H SQ 03/30/17 06:00 04/29/17 05:59 03/30/17 05:36 5,000 UNIT Acetaminophen (Tylenol Tab) 650 mg Q4H PRN PO 03/29/17 21:00 04/28/17 20:59 Al Hydrox/Mg Hydrox/Simethicone (Maalox Max Susp) 15 ml Q4H PRN PO 03/29/17 21:00 04/28/17 20:59 Magnesium Hydroxide (Milk Of Magnesia Susp) 30 ml Q12H PRN PO 03/29/17 21:00 04/28/17 20:59 Ondansetron HCl (Zofran Inj) 4 mg Q6H PRN IV 03/29/17 21:00 04/28/17 20:59 Morphine Sulfate (MoRPHine SULFATE INJ) 2 mg Q30M PRN IV 03/29/17 21:00 04/12/17 20:59 Polyethylene (Miralax Powder Packet) 17 gm DAILY PRN PO 03/29/17 21:00 04/28/17 20:59 Atorvastatin Calcium (Lipitor Tab) 40 mg QAM PO 03/30/17 09:00 04/29/17 08:59 Aspirin (Ecotrin Tab) 81 mg QAM PO 03/30/17 09:00 04/29/17 08:59 Miscellaneous Information (Pharmacist Discharge Med Rec Consult) 1 ea UD PRN N/A 03/29/17 21:00 04/28/17 20:59 Miscellaneous (Iv Fluids Completed) 1 ea PRN PRN N/A 03/29/17 22:15 03/29/18 22:14 Miscellaneous Information (Nursing Verbal Med Order) 1 ea ONE ONCE N/A 03/30/17 08:30 03/30/17 08:31 UNV Review of Systems Constitutional: + weakness, No fatigue Eyes: + worsening of vision, No diplopia ENT: No hearing loss, No tinnitus Respiratory: No cough, No shortness of breath Cardiovascular: No chest pain, No palpitations Abdomen: No pain, No nausea Musculoskeletal: No joint pain, No muscle pain Genitourinary - Male: No dysuria, No urinary incontinence Neurologic: + weakness, + numbness/tingling, No memory loss, No vertigo, No balance problems Psychiatric: No depression symptoms, No anxiety Endocrine: No fatigue Hematologic / Lymphatic: No abnormal bleeding/bruising Integumentary: No rash Allergic / Immunologic: No hives Physical Exam Vital Signs (Past 24 Hrs): Date Time Temp Pulse Resp B/P (MAP) Pulse Ox O2 Delivery O2 Flow Rate FiO2 03/30/17 07:36 36.5 65 18 152/104 (120) 98 Room Air 03/30/17 05:43 36.6 60 20 143/83 (103) 97 BiPAP 03/30/17 04:00 Room Air 03/30/17 04:00 36.6 63 18 127/87 (100) 91 Room Air 03/30/17 00:19 36.6 74 16 129/91 94 Room Air 03/30/17 00:00 Room Air 03/29/17 21:47 76 18 159/100 96 Room Air 03/29/17 21:01 78 20 122/100 95 Room Air 03/29/17 19:39 66 18 135/96 94 Room Air 03/29/17 19:09 67 03/29/17 17:59 37.0 84 18 157/104 96 Room Air 03/29/17 17:59 97 Room Air The patient is right-handed. The patient is awake and alert. Despite his thoughts that his speech is slurred , I find that his speech is normal without aphasia or dysarthria. Mentation and thought processes are intact with orientation and normal fund of knowledge. Mood and affect are normal and appropriate. Appearance and grooming are normal. The discs are sharp with positive venous pulsations. There are no exudates, hemorrhages, or blood vessel changes seen. Pupils are 4mm bilaterally and reactive to light. Extraocular eye muscles are intact without nystagmus. Visual acuity and visual gary seem normal grossly to confrontation. There is a decreased sensation to touch in the right V2 distribution but not V1 or V3. Corneal reflexes are positive bilaterally. Facial strength and symmetry is normal bilaterally. Hearing seems intact grossly to voice and finger rub. Palate moves well without asymmetry. There is normal sternocleidomastoid and trapezius strength bilaterally. Tongue protrudes to the right consistently. When I test his tongue strength by having him push his tongue against the inside of his cheek, he has normal strength bilaterally. Neck is with full range of motion without discomfort. There are no cervical bruits. There are no cranial or ocular bruits. Heart is without murmur. Cervical, thoracic, and lumbar spine are nontender to palpation. Gait is is not tested but stance sitting up in bed is quite normal. With outstretched arms there is no drift. There are no resting, postural, or action tremors. There is no ataxia with [id number] testing. There is good facility in the hands, with no clumsiness or decreased facility on the right. There are no abnormal involuntary movements noted. 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 He does have some giveaway weakness in the right upper extremity in an irregular fashion. Motor strength is 5/5 diffusely in the legs bilaterally including hip flexors, quadriceps, hamstring, gastrocnemius, tibialis anterior, tibialis posterior, and peroneii muscles bilaterally. Toe extensors are normal and there is good bulk in the extensor digitorum brevis muscle bilaterally. The limbs have good tone without rigidity or spasticity, and there is no atrophy noted. Muscle bulk is normal, there is no tenderness, no myotonia noted to percussion, and no fasciculations seen. Sensory examination is intact to pin and touch throughout all four limbs. He does not have any particular numbness in the right arm or leg. Reflexes are 2/4 in the biceps, triceps, brachioradialis, quadriceps, and Achilles tendons bilaterally, without any asymmetry. Toes are downgoing with plantar stimulation bilaterally. Peripheral pulses are present and of normal quality distally in all four limbs. There is no peripheral edema noted. Laboratory Results Past 24 Hours: 03/30/17 05:58 Red Blood Count 4.61, Mean Corpuscular Volume 81.6, Mean Corpuscular Hemoglobin 25.8, Mean Corpuscular Hemoglobin Concent 31.6, Mean Platelet Volume 9.5, Neutrophils (%) (Auto) 50.5, Lymphocytes (%) (Auto) 29.6, Monocytes (%) (Auto) 16.2, Eosinophils (%) (Auto) 2.4, Basophils (%) (Auto) 1.3, Neutrophils # (Auto ) 1.87, Lymphocytes # (Auto) 1.10, Monocytes # (Auto) 0.60, Eosinophils # (Auto ) 0.09, Basophils # (Auto) 0.05 03/30/17 05:58 Test 03/29/17 18:45 03/30/17 05:58 Prothrombin Time 10.8 SECONDS (9.0-12.0) Prothromb Time International Ratio 1.0 (0.9-1.1) Activated Partial Thromboplast Time 24.3 SECONDS (21.0-31.0) Partial Thromboplastin Ratio 0.9 Estimated Average Glucose 120 mg/dl Hemoglobin A1c 5.8 % (4.5-5.6) Total Creatine Kinase 108 U/L (39-308) Creatine Kinase MB < 0.5 ng/ml (0.5-3.6) Creatine Kinase MB Ratio (0-3.0) Troponin I < 0.015 ng/ml (0-0.045) White Blood Count 3.71 K/uL (4.8-10.8) Red Blood Count 4.61 M/uL (4.7-6.1) Hemoglobin 11.9 g/dL (14.0-18.0) Hematocrit 37.6 % (42-52) Mean Corpuscular Volume 81.6 fL (80-100) Mean Corpuscular Hemoglobin 25.8 pg (25-34) Mean Corpuscular Hemoglobin Concent 31.6 g/dl (32-36) Platelet Count 312 K/uL (130-400) Mean Platelet Volume 9.5 fL (7.4-10.4) Neutrophils (%) (Auto) 50.5 % Lymphocytes (%) (Auto) 29.6 % Monocytes (%) (Auto) 16.2 % Eosinophils (%) (Auto) 2.4 % Basophils (%) (Auto) 1.3 % Neutrophils # (Auto) 1.87 K/uL (1.4-6.5) Lymphocytes # (Auto) 1.10 K/uL (1.2-3.4) Monocytes # (Auto) 0.60 K/uL (0.11-0.59) Eosinophils # (Auto) 0.09 K/uL (0-0.5) Basophils # (Auto) 0.05 K/uL (0-0.2) RDW Standard Deviation 43.1 fL (36.4-46.3) RDW Coefficient of Variation 14.5 % (11.5-14.5) Immature Granulocyte % (Auto) 0.0 % Immature Granulocyte # (Auto) 0.00 K/uL (0.00-0.02) Anion Gap 6.0 mmol/L (3-11) Est Creatinine Clear Calc Drug Dose 101.2 ml/min Estimated GFR () 116.6 Estimated GFR (Non- 100.6 BUN/Creatinine Ratio 14.8 (10-20) Calcium Level 8.9 mg/dl (8.5-10.1) Triglycerides Level 73 mg/dl (0-150) Cholesterol Level 143 mg/dl (0-200) HDL Cholesterol 46 mg/dl LDL Cholesterol, Calculated 82 mg/dl VLDL Cholesterol, Calculated 15 mg/dl Cholesterol/HDL Ratio 3.1 Imaging Brain MRI WITHOUT CONTRAST HISTORY: Stroke TECHNIQUE: Multiplanar multisequence MRI of the brain was performed without the use of contrast. COMPARISON STUDY: Head CT 03/29/2017. Brain MRI 02/10/2016. FINDINGS: There is no mass, hematoma, midline shift, or acute infarct. The paranasal sinuses are clear. A few opacified left mastoid air cells. Old bilateral basal ganglia lacunar infarcts.. The ventricles and sulci demonstrate mild age-related involutional changes. Scattered foci of T2 hyperintensity seen within the periventricular and subcortical white matter are nonspecific but suggestive of mild microvascular ischemic changes. The major vascular flow voids at the skull base are well-maintained. Small old infarct within the right cervical hemisphere. 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 IMPRESSION: No significant change compared to the prior study. No acute intracranial abnormality. Old small infarcts as described above. 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 Electronically signed by: Artem Dewitt M.D. 03/30/2017 7:19 AM Impression 1. Acute onset, March 28, multiple symptoms including right-sided numbness (face and arm), right-sided weakness (arm), slurred speech, blurry vision, left- sided headache. This patient did not have a stroke by MRI. There is nothing on exam consistent with stroke, Oropeza's palsy, or pathologic weakness. The tongue weakness is inconsistent and not pathologic to me. This patient did not have a stroke last January either. Unfortunately, he has been labeled with stroke and TIAs since January 2016 despite neurologic consultation at that time specifically stating otherwise. The episode that started Sofi 12 is quite similar to the episode of January 2016, which are similar to his intermittent episodes that he describes vision changes, numbness, speech, and headache that he's been having since 2009 ( unfortunately labeled as TIAs) In addition, his MRI's have not shown any significant small vessel ischemic disease that I would expect in someone who has been having TIAs since 2009, particularly with a history of hypertension. I strongly suspect complicated migraine as his real diagnosis. These would consist of episodes of vasodilation and vasospasm occurring together. 2. History of severe migraines intermittently. These would be episodes of vasodilation without vasospasm. 3. Hypertension Not adequately controlled. Hypertension can trigger complicated migraines. 4. 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 History of dominantly aortic aneurysm. 6. History of DVT in 2009, off anticoagulation in 2014, with no further episodes of clotting Plan 1. There is no indication for Plavix in this patient. 2. I would consider 81 mg aspirin tablet daily. This would be reasonable and is not had nosebleeds to this. This would be prudent given his history of hypertension. 3. The patient is not a candidate for high-dose statins with his cholesterol level and overall medical conditions 4. Consider initiation of verapamil This is an excellent medication to control vasospasm of migraines as well as treat hypertension. 5. There is no need for additional testing or treatment for the vertebral aneurysm (unless, of course, in future it increases in size) I really have no further neurologic testing or treatment recommendations to make at this time. I've spoken to Dr. Mandujano regarding this case including differential diagnosis and treatment options.
[2017-03-30] MEDS ORDERED: CLOPIDOGREL BISULFATE 75 MG TAB PO SCH (09:00)
[2017-03-30] MEDS: ACETAMINOPHEN 325 MG TAB PO PRN ×2 (14:36→22:01)
[2017-03-30] MEDS ORDERED: KETOROLAC TROMETHAMINE 30 MG/ML VIAL IV STA (15:59)
[2017-03-30] MEDS ORDERED: PROMETHAZINE HCL INJ 25 MG in SODIUM CHLORIDE 0.9% 50ML 50 ML IV STA (15:59)
[2017-03-30] MEDS: ONDANSETRON INJ 2 MG/ML 2 ML VIAL IV PRN (17:52)
[2017-03-30] MEDS ORDERED: ONDANSETRON INJ 2 MG/ML 2 ML VIAL IV. PRN (20:15)
[2017-03-30] MEDS: METHYLPREDNISOLONE IV 60 MG in SYRINGE 0 ML IV SCH (21:57)
--- NOTE | 2017-03-30 22:22 | Progress Note ---
Subjective Date of Service: Mar 30, 2017. Subjective Pt evaluation today including: conversation w/ patient, physical exam, chart review, lab review, review of studies (MRI brain, MRA brain), conversation w/ senior science consultant (neurology), review of inpatient medication list Pain: left sided headache PO Intake: normal - 100% meals Voiding: no voiding problems tele stable since admission continues w/ left-sided frontal headache - has associated left eye tearing, nausea, photophobia, phonophobia gets mod-severe headaches about every 2 weeks at the [facility] - usually has nausea , etc Problem List Medical Problems: (1) Accelerated hypertension Status: Acute (2) Aortic aneurysm Status: Acute (3) Aortic aneurysm Status: Acute (4) Cerebral aneurysm Status: Acute (5) Fever Status: Acute (6) Precordial chest pain Status: Acute (7) Retrosternal chest pain Status: Acute (8) Stroke Status: Acute Review of Systems Constitutional: No fever Respiratory: No shortness of breath Cardiac: No chest pain Abdomen: No pain Neurologic: No weakness, No balance problems Objective Vital Signs Date Time Temp Pulse Resp B/P (MAP) Pulse Ox O2 Delivery O2 Flow Rate FiO2 03/30/17 20:00 Room Air 03/30/17 19:59 36.8 63 18 111/73 (86) 96 03/30/17 16:00 Room Air 03/30/17 15:35 36.8 63 18 129/85 (100) 95 03/30/17 11:25 36.7 56 18 118/82 (94) 95 Room Air 03/30/17 07:45 Room Air 03/30/17 07:36 36.5 65 18 152/104 (120) 98 Room Air 03/30/17 05:43 36.6 60 20 143/83 (103) 97 BiPAP 03/30/17 04:00 Room Air 03/30/17 04:00 36.6 63 18 127/87 (100) 91 Room Air 03/30/17 00:19 36.6 74 16 129/91 94 Room Air 03/30/17 00:00 Room Air Physical Exam General Appearance: no apparent distress ENT: pharynx normal Neck: no JVD Respiratory/Chest: lungs clear, no respiratory distress, no accessory muscle use Cardiovascular: regular rate, rhythm, no edema, no gallop, no JVD, no murmur Abdomen: normal bowel sounds, non tender, soft, no organomegaly Extremities: no pedal edema Neurologic/Psychiatric: no motor/sensory deficits, alert, normal mood/affect, oriented x 3, + pertinent finding (no facial droop either side of face) Laboratory Results Last 24 Hours Test 03/30/17 05:58 White Blood Count 3.71 K/uL Red Blood Count 4.61 M/uL Hemoglobin 11.9 g/dL Hematocrit 37.6 % Mean Corpuscular Volume 81.6 fL Mean Corpuscular Hemoglobin 25.8 pg Mean Corpuscular Hemoglobin Concent 31.6 g/dl Platelet Count 312 K/uL Mean Platelet Volume 9.5 fL Neutrophils (%) (Auto) 50.5 % Lymphocytes (%) (Auto) 29.6 % Monocytes (%) (Auto) 16.2 % Eosinophils (%) (Auto) 2.4 % Basophils (%) (Auto) 1.3 % Neutrophils # (Auto) 1.87 K/uL Lymphocytes # (Auto) 1.10 K/uL Monocytes # (Auto) 0.60 K/uL Eosinophils # (Auto) 0.09 K/uL Basophils # (Auto) 0.05 K/uL RDW Standard Deviation 43.1 fL RDW Coefficient of Variation 14.5 % Immature Granulocyte % (Auto) 0.0 % Immature Granulocyte # (Auto) 0.00 K/uL Sodium Level 140 mmol/L Potassium Level 3.5 mmol/L Chloride Level 108 mmol/L Carbon Dioxide Level 26 mmol/L Anion Gap 6.0 mmol/L Blood Urea Nitrogen 12 mg/dl Creatinine 0.80 mg/dl Est Creatinine Clear Calc Drug Dose 101.2 ml/min Estimated GFR () 116.6 Estimated GFR (Non- 100.6 BUN/Creatinine Ratio 14.8 Random Glucose 90 mg/dl Calcium Level 8.9 mg/dl Triglycerides Level 73 mg/dl Cholesterol Level 143 mg/dl HDL Cholesterol 46 mg/dl LDL Cholesterol, Calculated 82 mg/dl VLDL Cholesterol, Calculated 15 mg/dl Cholesterol/HDL Ratio 3.1 Assessment and Plan 56yo male - 1. right-sided facial numbness - felt to be due to complex migraine. Appreciate neuro consult. MRI brain negative for acute stroke or other lesions. For abortive Rx - try toradol w/ phenergan now. Not a candidate for triptans. If toradol not helpful - start IV steroids. 2. h/o stroke - cont asa for secondary stroke prevention. should be on statin agent - this has been added 3. HTN - BPs improved with home regimen of meds. 4. DVT proph - heparin BID 5. 5mm vertebral artery aneurysm - no Rx at this time. once headache resolves can d/c back to [facility] Continued [facility] stay due to: multiple IV medications needed, other (headache - status) Discharge planning: other ([place] [facility] )
[2017-03-31] VITALS (8 sets, daily range): BP systolic 113–140; BP diastolic 68–93; PULSE 55–99; TEMP 36.4–36.7; O2SAT 90–94
[2017-03-31] MEDS ORDERED: KETOROLAC TROMETHAMINE 30 MG/ML VIAL IV STA ×2 (00:23→02:48)
[2017-03-31] MEDS: ONDANSETRON INJ 2 MG/ML 2 ML VIAL IV PRN ×2 (03:42→12:45)
[2017-03-31] MEDS: METHYLPREDNISOLONE IV 60 MG in SYRINGE 0 ML IV SCH ×3 (05:23→19:05)
[2017-03-31] MEDS: HEPARIN SOD 5000 UNIT/0.5 ML CARP SQ SCH ×3 (05:26→21:15)
[2017-03-31 07:17] LABS: BASO % 0.1 %; BASO ABS # 0.01 K/uL (0-0.2); COMPLETE YES; HEMATOCRIT 38.7 % (42-52); IG% 0.2 %; LYMPH ABS # 0.51 K/uL (1.2-3.4); MEAN CELL VOLUME 81.3 fL (80-100); MEAN CORPUSCULAR HEMOGLOBIN 27.3 pg (25-34); MEAN CORPUSCULAR HGB CONC 33.6 g/dl (32-36); MEAN PLATELET VOLUME 10.2 fL (7.4-10.4); MONO % 0.9 %; NEUT % 92.8 %; PLATELET COUNT 316 K/uL (130-400); RED BLOOD COUNT 4.76 M/uL (4.7-6.1); WHITE BLOOD COUNT 8.47 K/uL (4.8-10.8)
[2017-03-31 07:56] LABS: BUN/CREATININE RATIO 21.5 (10-20); CALCIUM 8.7 mg/dl (8.5-10.1); CREATININE 1.3 mg/dl (0.60-1.40); POTASSIUM 4.5 mmol/L (3.5-5.1)
[2017-03-31] MEDS ORDERED: BUTALBITAL/ACETAMIN/CAFFEINE TAB PO ONE (09:00)
[2017-03-31] MEDS: ATORVASTATIN 40 MG TAB PO SCH (09:09)
[2017-03-31] MEDS: ASPIRIN 81 MG ECTAB PO SCH (09:09)
[2017-03-31] MEDS: METOPROLOL TARTRATE 50 MG TAB PO SCH ×2 (09:10→21:24)
--- NOTE | 2017-03-31 10:05 | Neurology Progress Notes ---
Neurology Progress Note Date of Service Mar 31, 2017. Subjective The patient developed a significant bifrontal headache this morning. He claims it's a dull aching sensation with photophobia. He still complains of some right sided face and arm numbness and tingling. CBC was unremarkable. Chem profile was remarkable only for glucose of 145. Blood pressure has been better. Objective Date Time Temp Pulse Resp B/P (MAP) Pulse Ox O2 Delivery O2 Flow Rate FiO2 03/31/17 09:00 99 03/31/17 07:45 Room Air 03/31/17 07:36 36.4 55 16 133/83 (100) 93 Room Air 03/31/17 04:11 36.6 58 20 123/86 (98) 92 Room Air 03/31/17 04:00 94 Room Air 03/31/17 00:32 94 Room Air 03/30/17 23:42 36.8 61 18 117/76 (90) 92 Room Air 03/30/17 20:00 Room Air 03/30/17 19:59 36.8 63 18 111/73 (86) 96 03/30/17 16:00 Room Air 03/30/17 15:35 36.8 63 18 129/85 (100) 95 03/30/17 11:25 36.7 56 18 118/82 (94) 95 Room Air Last 24 Hours Test 03/31/17 06:41 White Blood Count 8.47 K/uL Red Blood Count 4.76 M/uL Hemoglobin 13.0 g/dL Hematocrit 38.7 % Mean Corpuscular Volume 81.3 fL Mean Corpuscular Hemoglobin 27.3 pg Mean Corpuscular Hemoglobin Concent 33.6 g/dl Platelet Count 316 K/uL Mean Platelet Volume 10.2 fL Neutrophils (%) (Auto) 92.8 % Lymphocytes (%) (Auto) 6.0 % Monocytes (%) (Auto) 0.9 % Eosinophils (%) (Auto) 0.0 % Basophils (%) (Auto) 0.1 % Neutrophils # (Auto) 7.85 K/uL Lymphocytes # (Auto) 0.51 K/uL Monocytes # (Auto) 0.08 K/uL Eosinophils # (Auto) 0.00 K/uL Basophils # (Auto) 0.01 K/uL RDW Standard Deviation 42.8 fL RDW Coefficient of Variation 14.4 % Immature Granulocyte % (Auto) 0.2 % Immature Granulocyte # (Auto) 0.02 K/uL Sodium Level 141 mmol/L Potassium Level 4.5 mmol/L Chloride Level 111 mmol/L Carbon Dioxide Level 23 mmol/L Anion Gap 7.0 mmol/L Blood Urea Nitrogen 28 mg/dl Creatinine 1.30 mg/dl Est Creatinine Clear Calc Drug Dose 63.2 ml/min Estimated GFR () 71.2 Estimated GFR (Non- 61.4 BUN/Creatinine Ratio 21.5 Random Glucose 145 mg/dl Calcium Level 8.7 mg/dl Exam: He is awake and alert. Speech and mentation is normal and there is no confusion or aphasia. There is no facial droop. Extraocular eye muscles are intact without nystagmus. Limbs move well with no asymmetry. Current Inpatient Medications Medications (Trade) Dose Ordered Sig/Veronica Route Start Time Stop Time Status Last Admin Dose Admin Metoprolol Tartrate (Lopressor Tab) 50 mg BID PO 03/29/17 21:00 04/28/17 20:59 03/31/17 09:10 50 MG Heparin Sodium (Porcine) (Heparin Sq 5000 Unit/0.5ml) 5,000 unit Q8H SQ 03/30/17 06:00 04/29/17 05:59 03/31/17 05:26 5,000 UNIT Acetaminophen (Tylenol Tab) 650 mg Q4H PRN PO 03/29/17 21:00 04/28/17 20:59 03/30/17 22:01 650 MG Al Hydrox/Mg Hydrox/Simethicone (Maalox Max Susp) 15 ml Q4H PRN PO 03/29/17 21:00 04/28/17 20:59 Magnesium Hydroxide (Milk Of Magnesia Susp) 30 ml Q12H PRN PO 03/29/17 21:00 04/28/17 20:59 Ondansetron HCl (Zofran Inj) 4 mg Q6H PRN IV 03/29/17 21:00 04/28/17 20:59 03/31/17 03:42 4 MG Morphine Sulfate (MoRPHine SULFATE INJ) 2 mg Q30M PRN IV 03/29/17 21:00 04/12/17 20:59 Polyethylene (Miralax Powder Packet) 17 gm DAILY PRN PO 03/29/17 21:00 04/28/17 20:59 Atorvastatin Calcium (Lipitor Tab) 40 mg QAM PO 03/30/17 09:00 04/29/17 08:59 03/31/17 09:09 40 MG Aspirin (Ecotrin Tab) 81 mg QAM PO 03/30/17 09:00 04/29/17 08:59 03/31/17 09:09 81 MG Miscellaneous Information (Pharmacist Discharge Med Rec Consult) 1 ea UD PRN N/A 03/29/17 21:00 04/28/17 20:59 Miscellaneous (Iv Fluids Completed) 1 ea PRN PRN N/A 03/29/17 22:15 03/29/18 22:14 Methylprednisolone Sodium Succinate 60 mg/Syringe 0.96 ml @ 1.5 mls/min Q8H IV 03/30/17 21:00 04/29/17 20:59 03/31/17 05:23 1.5 MLS/MIN Ondansetron HCl (Zofran Inj) 4 mg Q6H PRN IV. 03/30/17 20:15 04/29/17 20:14 Sodium Chloride 1,000 ml @ 100 mls/hr Q10H IV 03/31/17 09:45 04/30/17 09:44 UNV Impression 1. Acute onset, March 28, multiple symptoms including right-sided numbness (face and arm), right-sided weakness (arm), slurred speech, blurry vision, left- sided headache. This patient did not have a stroke by MRI. There is nothing on exam consistent with stroke, Oropeza's palsy, or pathologic weakness. The tongue weakness is inconsistent and not pathologic to me. This patient did not have a stroke last January either. Unfortunately, he has been labeled with stroke and TIAs since January 2016 despite neurologic consultation at that time specifically stating otherwise. The episode that started March 28 is quite similar to the episode of January 2016, which are similar to his intermittent episodes that he describes vision changes, numbness, speech, and headache that he's been having since 2009 ( unfortunately labeled as TIAs) In addition, his MRI's have not shown any significant small vessel ischemic disease that I would expect in someone who has been having TIAs since 2009, particularly with a history of hypertension. I strongly suspect complicated migraine as his real diagnosis. These would consist of episodes of vasodilation and vasospasm occurring together. He still has some headache features and numbness today. 2. History of severe migraines intermittently. These would be episodes of vasodilation without vasospasm. 3. Hypertension Not adequately controlled. Hypertension can trigger complicated migraines. 4. 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 History of dominantly aortic aneurysm. 6. History of DVT in 2009, off anticoagulation in 2015, with no further episodes of clotting Plan 1. Continue 81 mg aspirin tablet daily. This would be reasonable and is not had nosebleeds to this. This would be prudent given his history of hypertension. 2. The patient is not a candidate for high-dose statins with his cholesterol level and overall medical conditions 3. Consider initiation of verapamil for headache prophylaxis This is an excellent medication to control vasospasm of migraines as well as treat hypertension. 4. To treat his current headache I would continue using steroids such as prednisone or IV methylprednisolone. Fioricet is reasonable as well. Other nonsteroidal such as Toradol can be useful. Unfortunately, because of his vasospasm and hypertension, triptan such as sumatriptan would be contraindicated. 5. I've had some success with an IV bolus of Depakote, 1000 mg to break the headache cycle also. 6. There is no need for additional testing or treatment for the vertebral aneurysm (unless, of course, in future it increases in size)
[2017-03-31] MEDS: SODIUM CHLORIDE 0.9% 1000ML 1,000 ML IV SCH ×2 (10:31→20:10)
[2017-03-31] MEDS ORDERED: NURSING VERBAL MED ORDER ONE (13:00)
[2017-03-31] MEDS ORDERED: LORAZEPAM INJ 1 MG in SYRINGE 0.5 ML IV ONE (13:15)
[2017-03-31] MEDS ORDERED: GLUCOSE 40% GEL 15 GM TUBE PO PRN (13:30)
[2017-03-31] MEDS ORDERED: GLUCOSE 10 TABS/TUBE PO PRN (13:30)
[2017-03-31] MEDS ORDERED: DEXTROSE 50% 50 ML SYR IV PRN (13:30)
[2017-03-31] MEDS ORDERED: GLUCAGON FOR INJ 1 MG VIAL SQ PRN (13:30)
[2017-03-31] MEDS ORDERED: DiphenhydrAMINE INJ 25 MG in SYRINGE 0 ML IV PRN (15:30)
[2017-03-31] MEDS ORDERED: DiphenhydrAMINE HCL 50 MG/ML VIAL IV PRN (15:45)
[2017-03-31] MEDS ORDERED: VALPROATE SOD IV 1,000 MG in DEXTROSE 5% 50ML 50 ML IV ONE (16:00)
[2017-03-31] MEDS: INSULIN ASPART 100 UNITS/ML 3 ML PEN SC SCH ×2 (17:40→21:00)
--- NOTE | 2017-03-31 21:46 | Progress Note ---
Subjective Date of Service: Mar 31, 2017. Subjective Pt evaluation today including: conversation w/ patient, physical exam, chart review, lab review, conversation w/ datapower consultant (neurology), review of inpatient medication list Pain: left-sided h/a along with L eye tearing PO Intake: eating meals, but then has emesis at times Voiding: no voiding problems right arm numbness improved right facial numbness still present no new neuro symptoms, however despite steroids, fioricet, ativan IV, toradol, multiple anti-emetics - headache persists Problem List Medical Problems: (1) Accelerated hypertension Status: Acute (2) Aortic aneurysm Status: Acute (3) Aortic aneurysm Status: Acute (4) Cerebral aneurysm Status: Acute (5) Fever Status: Acute (6) Precordial chest pain Status: Acute (7) Retrosternal chest pain Status: Acute (8) Stroke Status: Acute Review of Systems Constitutional: No fever, No chills Respiratory: No shortness of breath Cardiac: No chest pain Abdomen: No pain Objective Vital Signs Date Time Temp Pulse Resp B/P (MAP) Pulse Ox O2 Delivery O2 Flow Rate FiO2 03/31/17 20:00 Room Air 03/31/17 19:21 36.7 76 16 140/93 (109) 90 Room Air 03/31/17 16:00 Room Air 03/31/17 15:26 36.6 85 16 126/86 (99) 91 Room Air 03/31/17 12:20 Room Air 03/31/17 12:04 36.6 74 18 113/68 (83) 94 Room Air 03/31/17 09:00 99 03/31/17 07:45 Room Air 03/31/17 07:36 36.4 55 16 133/83 (100) 93 Room Air 03/31/17 04:11 36.6 58 20 123/86 (98) 92 Room Air 03/31/17 04:00 94 Room Air 03/31/17 00:32 94 Room Air 03/30/17 23:42 36.8 61 18 117/76 (90) 92 Room Air Physical Exam General Appearance: no apparent distress Eyes: + pertinent finding (no photophobia with penlight exam of eyes) ENT: pharynx normal Neck: no JVD Respiratory/Chest: lungs clear, no respiratory distress, no accessory muscle use Cardiovascular: regular rate, rhythm, no gallop, no murmur Abdomen: normal bowel sounds, non tender, soft, no organomegaly Extremities: no pedal edema Neurologic/Psychiatric: alert, oriented x 3, + pertinent finding (NO facial droop; strength RUE about 4/5; RLE 4-5/5; LUE/LLE - 5/5) Skin: no rash Laboratory Results Last 24 Hours Test 03/31/17 06:41 03/31/17 11:51 03/31/17 16:19 03/31/17 20:26 White Blood Count 8.47 K/uL Red Blood Count 4.76 M/uL Hemoglobin 13.0 g/dL Hematocrit 38.7 % Mean Corpuscular Volume 81.3 fL Mean Corpuscular Hemoglobin 27.3 pg Mean Corpuscular Hemoglobin Concent 33.6 g/dl Platelet Count 316 K/uL Mean Platelet Volume 10.2 fL Neutrophils (%) (Auto) 92.8 % Lymphocytes (%) (Auto) 6.0 % Monocytes (%) (Auto) 0.9 % Eosinophils (%) (Auto) 0.0 % Basophils (%) (Auto) 0.1 % Neutrophils # (Auto) 7.85 K/uL Lymphocytes # (Auto) 0.51 K/uL Monocytes # (Auto) 0.08 K/uL Eosinophils # (Auto) 0.00 K/uL Basophils # (Auto) 0.01 K/uL RDW Standard Deviation 42.8 fL RDW Coefficient of Variation 14.4 % Immature Granulocyte % (Auto) 0.2 % Immature Granulocyte # (Auto) 0.02 K/uL Sodium Level 141 mmol/L Potassium Level 4.5 mmol/L Chloride Level 111 mmol/L Carbon Dioxide Level 23 mmol/L Anion Gap 7.0 mmol/L Blood Urea Nitrogen 28 mg/dl Creatinine 1.30 mg/dl Est Creatinine Clear Calc Drug Dose 63.2 ml/min Estimated GFR () 71.2 Estimated GFR (Non- 61.4 BUN/Creatinine Ratio 21.5 Random Glucose 145 mg/dl Calcium Level 8.7 mg/dl Bedside Glucose 168 mg/dl 121 mg/dl 130 mg/dl Assessment and Plan 56yo male - 1. status complex/complicated migraine - ongoing despite numerous meds tried. Increase steroids to 60mg q6h. Neuro recommending depakote loading - will do so with 1gm IV x 1. Try benadryl 25mg IV q6h prn. Appreciate neuro consult and recommendations. MRI brain negative for acute stroke or other lesions. NOT A CANDIDATE FOR TRIPTANS DUE TO PREVIOUS STROKE. 2. h/o stroke - cont asa for secondary stroke prevention. should be on statin agent - this has been added 3. HTN - BPs improved with home regimen of meds. 4. DVT proph - heparin BID 5. 5mm vertebral artery aneurysm - no Rx at this time. 6. vomiting - 2nd to migraine headache. Cut diet to full liquids. 7. acute kidney injury - start NS hydration and repeat BMP in am for stability. d/c any NSAIDs. 8. pre-DM - controlled once headache resolves can d/c back to group home agree verapamil will be good choice for prophylaxis (or depakote) Continued [facility] stay due to: multiple IV medications needed, other (headache - status) Discharge planning: other (group home )
[2017-03-31] MEDS: ACETAMINOPHEN 325 MG TAB PO PRN (23:47)
[2017-04-01] VITALS (8 sets, daily range): BP systolic 116–151; BP diastolic 72–93; PULSE 54–93; TEMP 36.5–37; O2SAT 92–99
[2017-04-01] MEDS: METHYLPREDNISOLONE IV 60 MG in SYRINGE 0 ML IV SCH ×4 (01:01→18:28)
[2017-04-01] MEDS: SODIUM CHLORIDE 0.9% 1000ML 1,000 ML IV SCH ×2 (05:42→16:07)
[2017-04-01] MEDS: HEPARIN SOD 5000 UNIT/0.5 ML CARP SQ SCH ×3 (05:44→20:39)
[2017-04-01 07:38] LABS: BUN/CREATININE RATIO 18.4 (10-20); CALCIUM 8.3 mg/dl (8.5-10.1); CREATININE 1.1 mg/dl (0.60-1.40); POTASSIUM 4.4 mmol/L (3.5-5.1)
[2017-04-01] MEDS: METOPROLOL TARTRATE 50 MG TAB PO SCH (08:45)
[2017-04-01] MEDS: ATORVASTATIN 40 MG TAB PO SCH (08:45)
[2017-04-01] MEDS: ASPIRIN 81 MG ECTAB PO SCH (08:45)
[2017-04-01] MEDS: INSULIN ASPART 100 UNITS/ML 3 ML PEN SC SCH ×4 (08:48→20:34)
--- NOTE | 2017-04-01 09:55 | Neurology Progress Notes ---
Neurology Progress Note Date of Service Apr 01, 2017. Subjective Patient has not been responding to the as needed medications for controlling headache. This morning his headache is "9 out of 10". Nursing reports no changes, seizures, or new issues. They report that he is asking for morphine but this is only given for chest pain. Objective Date Time Temp Pulse Resp B/P (MAP) Pulse Ox O2 Delivery O2 Flow Rate FiO2 04/01/17 08:46 65 120/75 (90) 04/01/17 07:26 36.5 60 18 137/89 (105) 94 Room Air 04/01/17 04:25 36.6 65 20 117/72 (87) 93 Room Air 04/01/17 04:00 Room Air 04/01/17 00:00 Room Air 04/01/17 00:00 36.5 68 18 151/90 (110) 94 Room Air 03/31/17 20:00 Room Air 03/31/17 19:21 36.7 76 16 140/93 (109) 90 Room Air 03/31/17 16:00 Room Air 03/31/17 15:26 36.6 85 16 126/86 (99) 91 Room Air 03/31/17 12:20 Room Air 03/31/17 12:04 36.6 74 18 113/68 (83) 94 Room Air Last 24 Hours Test 03/31/17 11:51 03/31/17 16:19 03/31/17 20:26 04/01/17 06:23 Bedside Glucose 168 mg/dl 121 mg/dl 130 mg/dl Sodium Level 143 mmol/L Potassium Level 4.4 mmol/L Chloride Level 112 mmol/L Carbon Dioxide Level 23 mmol/L Anion Gap 8.0 mmol/L Blood Urea Nitrogen 20 mg/dl Creatinine 1.10 mg/dl Est Creatinine Clear Calc Drug Dose 75.6 ml/min Estimated GFR () 87.1 Estimated GFR (Non- 75.2 BUN/Creatinine Ratio 18.4 Random Glucose 148 mg/dl Calcium Level 8.3 mg/dl Chemistry Specimen Hemolysis Test 04/01/17 07:31 Bedside Glucose 129 mg/dl Exam: He is awake and alert. He is covering his eyes and keeping the room dark but is resting, calmly. He will lift up his eye cover, sit up in bed, and talk to me and is without aphasia or dysarthria. He has no facial droop. External muscles are intact without nystagmus. Tongue still deviates to the right but with his mouth relatively closed he pushes his tongue equally well on each side inside his cheek against my finger. Neck is supple. With outstretched arms there is no drift. There is no resting , postural, or action tremor. Strength is symmetrical in the limbs. There are no abnormal involuntary movements. Current Inpatient Medications Medications (Trade) Dose Ordered Sig/Veronica Route Start Time Stop Time Status Last Admin Dose Admin Metoprolol Tartrate (Lopressor Tab) 50 mg BID PO 03/29/17 21:00 04/28/17 20:59 04/01/17 08:45 50 MG Heparin Sodium (Porcine) (Heparin Sq 5000 Unit/0.5ml) 5,000 unit Q8H SQ 03/30/17 06:00 04/29/17 05:59 04/01/17 05:44 5,000 UNIT Acetaminophen (Tylenol Tab) 650 mg Q4H PRN PO 03/29/17 21:00 04/28/17 20:59 03/31/17 23:47 650 MG Al Hydrox/Mg Hydrox/Simethicone (Maalox Max Susp) 15 ml Q4H PRN PO 03/29/17 21:00 04/28/17 20:59 Magnesium Hydroxide (Milk Of Magnesia Susp) 30 ml Q12H PRN PO 03/29/17 21:00 04/28/17 20:59 Morphine Sulfate (MoRPHine SULFATE INJ) 2 mg Q30M PRN IV 03/29/17 21:00 04/12/17 20:59 Polyethylene (Miralax Powder Packet) 17 gm DAILY PRN PO 03/29/17 21:00 04/28/17 20:59 Atorvastatin Calcium (Lipitor Tab) 40 mg QAM PO 03/30/17 09:00 04/29/17 08:59 04/01/17 08:45 40 MG Aspirin (Ecotrin Tab) 81 mg QAM PO 03/30/17 09:00 04/29/17 08:59 04/01/17 08:45 81 MG Miscellaneous (Iv Fluids Completed) 1 ea PRN PRN N/A 03/29/17 22:15 03/29/18 22:14 Ondansetron HCl (Zofran Inj) 4 mg Q6H PRN IV. 03/30/17 20:15 04/29/17 20:14 Sodium Chloride 1,000 ml @ 100 mls/hr Q10H IV 03/31/17 09:45 04/30/17 09:44 04/01/17 05:42 100 MLS/HR Insulin Aspart (novoLOG ASPART) SLIDING SCALE ACHS SC 03/31/17 16:30 04/30/17 16:29 04/01/17 08:48 1 UNITS Glucose (Glucose 40% Gel) 15-30 GRAMS 15 GRAMS... UD PRN PO 03/31/17 13:30 04/30/17 13:29 Glucose (Glucose Chew Tab) 4-8 Tablets 4 Tabl... UD PRN PO 03/31/17 13:30 04/30/17 13:29 Dextrose (Dextrose 50% 50ML Syringe) 25-50ML OF 50% DW IV FOR... UD PRN IV 03/31/17 13:30 04/30/17 13:29 Glucagon (Glucagon Inj) 1 mg UD PRN SQ 03/31/17 13:30 04/30/17 13:29 Methylprednisolone Sodium Succinate 60 mg/Syringe 0.96 ml @ 1.5 mls/min Q6H IV 03/31/17 19:00 04/29/17 20:59 04/01/17 08:43 1.5 MLS/MIN Diphenhydramine HCl (Benadryl Inj) 25 mg Q6H PRN IV 03/31/17 15:45 04/30/17 15:44 03/31/17 21:27 25 MG Impression 1. Acute onset, March 28, multiple symptoms including right-sided numbness (face and arm), right-sided weakness (arm), slurred speech, blurry vision, left- sided headache. This patient did not have a stroke by MRI. There is nothing on exam consistent with stroke, Oropeza's palsy, or pathologic weakness. The tongue weakness is inconsistent and not pathologic to me. This patient did not have a stroke last January either. Unfortunately, he has been labeled with stroke and TIAs since January 2016 despite neurologic consultation at that time specifically stating otherwise. The episode that started March 28 is quite similar to the episode of January 2016, which are similar to his intermittent episodes that he describes vision changes, numbness, speech, and headache that he's been having since 2009 ( unfortunately labeled as TIAs) In addition, his MRI's have not shown any significant small vessel ischemic disease that I would expect in someone who has been having TIAs since 2009, particularly with a history of hypertension. I strongly suspect complicated migraine as his real diagnosis. These would consist of episodes of vasodilation and vasospasm occurring together. He continues to have significant headache, refractory to medication, over the last 48 hours. 2. History of severe migraines intermittently. These would be episodes of vasodilation without vasospasm. 3. Hypertension Not adequately controlled. Hypertension can trigger complicated migraines. 4. 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 History of dominantly aortic aneurysm. 6. History of DVT in 2009, off anticoagulation in 2015, with no further episodes of clotting Plan 1. Continue 81 mg aspirin tablet daily. This would be reasonable and is not had nosebleeds to this. This would be prudent given his history of hypertension. 2. The patient is not a candidate for high-dose statins with his cholesterol level and overall medical conditions 3. Consider initiation of verapamil for headache prophylaxis This is an excellent medication to control vasospasm of migraines as well as treat hypertension. 4. To treat his current headache I would continue using steroids such as prednisone or IV methylprednisolone. Fioricet is reasonable as well. Other nonsteroidal such as Toradol can be useful. Unfortunately, because of his vasospasm and hypertension, triptan such as sumatriptan would be contraindicated. 5. There is no need for additional testing or treatment for the vertebral aneurysm (unless, of course, in future it increases in size) Overall, this patient is becoming difficult and it is impossible for me to tell if he truly has a headache or not. He does not look in distress but I can't measure pain. He certainly has secondary gain to stay in the hospital and not go back to the shelter. He is also asking for narcotics. I think this patient could be treated in the [facility] chest as well as in the hospital at this point. He could be given a one-time dose of narcotic medicine and if improved, could be transferred back. I would initiate 180 mg verapamil SR each morning starting today. I have communicated with .
[2017-04-01] MEDS: VERAPAMIL HCL 120 MG TABCR PO SCH ×2 (11:31→11:42)
[2017-04-01] MEDS ORDERED: HYDROmorphone HCL 2 MG TAB PO STA (12:01)
[2017-04-01] MEDS ORDERED: HYDROmorphone HCL 2 MG TAB ONE (12:04)
[2017-04-01] MEDS: METOPROLOL TARTRATE 25 MG TAB PO SCH (20:34)
[2017-04-01] MEDS: ACETAMINOPHEN 325 MG TAB PO PRN (21:55)
[2017-04-02] VITALS: BP 142/99; PULSE 109; TEMP 37.1; O2SAT 99
[2017-04-02] MEDS: METHYLPREDNISOLONE IV 60 MG in SYRINGE 0 ML IV SCH ×3 (01:43→12:08)
[2017-04-02] MEDS: SODIUM CHLORIDE 0.9% 1000ML 1,000 ML IV SCH (01:44)
[2017-04-02] MEDS: ACETAMINOPHEN 325 MG TAB PO PRN ×3 (02:39→14:31)
[2017-04-02 04:00] VITALS: BP 118/74; PULSE 56; TEMP 36.6; O2SAT 93
[2017-04-02] MEDS: HEPARIN SOD 5000 UNIT/0.5 ML CARP SQ SCH ×2 (05:39→14:00)
[2017-04-02 07:57] VITALS: BP 154/93; PULSE 49; TEMP 36.7; O2SAT 93
[2017-04-02] MEDS: ASPIRIN 81 MG ECTAB PO SCH (08:33)
[2017-04-02] MEDS: ATORVASTATIN 40 MG TAB PO SCH (08:33)
[2017-04-02] MEDS: INSULIN ASPART 100 UNITS/ML 3 ML PEN SC SCH ×3 (08:34→16:30)
[2017-04-02] MEDS: VERAPAMIL HCL 120 MG TABCR PO SCH (08:34)
[2017-04-02] MEDS: METOPROLOL TARTRATE 25 MG TAB PO SCH (08:35)
--- NOTE | 2017-04-02 08:43 | Progress Note ---
Subjective Date of Service: Apr 01, 2017. Subjective Pt evaluation today including: conversation w/ patient, physical exam, chart review, lab review, conversation w/ strategic consultant (neurology), review of inpatient medication list Pain: left-sided headache (behind the eye) PO Intake: asking for more food; tolerating full liquids Voiding: no voiding problems tele stable mild right-sided facial numbness but improved left eye tearing still present no new neuro complaints Problem List Medical Problems: (1) Accelerated hypertension Status: Acute (2) Aortic aneurysm Status: Acute (3) Aortic aneurysm Status: Acute (4) Cerebral aneurysm Status: Acute (5) Fever Status: Acute (6) Precordial chest pain Status: Acute (7) Retrosternal chest pain Status: Acute (8) Stroke Status: Acute Review of Systems Constitutional: No fever Respiratory: No shortness of breath Cardiac: No chest pain Abdomen: No pain Objective Vital Signs Date Time Temp Pulse Resp B/P (MAP) Pulse Ox O2 Delivery O2 Flow Rate FiO2 04/01/17 19:23 36.6 56 20 140/93 (109) 92 Room Air 04/01/17 16:00 Room Air 04/01/17 15:20 37.0 93 16 126/81 (96) 99 Room Air 04/01/17 12:00 Room Air 04/01/17 11:39 36.6 54 18 116/72 (87) 98 04/01/17 11:30 54 117/76 (90) 04/01/17 08:46 65 120/75 (90) 04/01/17 08:00 Room Air 04/01/17 07:26 36.5 60 18 137/89 (105) 94 Room Air 04/01/17 04:25 36.6 65 20 117/72 (87) 93 Room Air 04/01/17 04:00 Room Air 04/01/17 00:00 Room Air 04/01/17 00:00 36.5 68 18 151/90 (110) 94 Room Air Physical Exam General Appearance: no apparent distress Eyes: PERRL, + pertinent finding (no photophobia ) ENT: pharynx normal, + pertinent finding (no tenderness w/ palpation of sinuses ) Neck: no JVD Respiratory/Chest: lungs clear, no respiratory distress, no accessory muscle use Cardiovascular: regular rate, rhythm, no gallop, no murmur Abdomen: normal bowel sounds, non tender, soft, no organomegaly Extremities: no pedal edema Neurologic/Psychiatric: alert, oriented x 3, + pertinent finding (no change in neuro examination; does NOT appear uncomfortable) Laboratory Results Last 24 Hours Test 04/01/17 06:23 04/01/17 07:31 04/01/17 11:45 04/01/17 16:45 Sodium Level 143 mmol/L Potassium Level 4.4 mmol/L Chloride Level 112 mmol/L Carbon Dioxide Level 23 mmol/L Anion Gap 8.0 mmol/L Blood Urea Nitrogen 20 mg/dl Creatinine 1.10 mg/dl Est Creatinine Clear Calc Drug Dose 75.6 ml/min Estimated GFR () 87.1 Estimated GFR (Non- 75.2 BUN/Creatinine Ratio 18.4 Random Glucose 148 mg/dl Calcium Level 8.3 mg/dl Magnesium Level 2.0 mg/dl Chemistry Specimen Hemolysis Bedside Glucose 129 mg/dl 109 mg/dl 111 mg/dl Assessment and Plan 56yo male - 1. status complex/complicated migraine - ongoing despite numerous meds tried. Increased steroids to 60mg q6h. s/p depakote loading. Verapamil 120mg (SR) daily for prophylaxis. Late in the day received call still having headache - gave dilaudid 2mg po x 1. Benadryl 25mg IV q6h prn. Appreciate neuro consult and recommendations. MRI brain negative for acute stroke or other lesions. NOT A CANDIDATE FOR TRIPTANS DUE TO PREVIOUS STROKE. hopefully will improve today. check sed rate in AM to be complete 2. h/o stroke - cont asa for secondary stroke prevention. should be on statin agent - this has been added 3. HTN - BPs improved with home regimen of meds. 4. DVT proph - heparin BID 5. 5mm vertebral artery aneurysm - no Rx at this time. 6. vomiting - 2nd to migraine headache. Resolved; advance diet. 7. acute kidney injury - improved. 8. pre-DM - controlled once headache resolves can d/c back to care home Continued [facility] stay due to: multiple IV medications needed, other (headache - status) Discharge planning: other (care home )
[2017-04-02 09:45] LABS: BUN/CREATININE RATIO 13.9 (10-20); CALCIUM 8.2 mg/dl (8.5-10.1); CREATININE 1.1 mg/dl (0.60-1.40); POTASSIUM 4.1 mmol/L (3.5-5.1)
[2017-04-02 10:40] LABS: LYME DISEASE AB IGG NEG (NEG); LYME DISEASE AB IGM NEG (NEG)
[2017-04-02 12:46] VITALS: BP 113/71; PULSE 91; TEMP 36.4; O2SAT 94
[2017-04-02] MEDS ORDERED: LPT40 PO (12:53)
[2017-04-02] MEDS ORDERED: METH4PAK PO (12:53)
[2017-04-02] MEDS ORDERED: VERA1TAB52 PO (12:53)
[2017-04-02] MEDS ORDERED: LPR25 PO (12:53)
[2017-04-02] MEDS ORDERED: ONDA8TAB62 SL (12:53)
[2017-04-02] MEDS ORDERED: ASPEC81 PO (12:53)
[2017-04-02] MEDS ORDERED: BUTA1CAP17 PO (12:53)
[2017-04-02] MEDS ORDERED: LISI20TA3 PO (12:53)
--- NOTE | 2017-04-02 13:00 | Discharge Instructions ---
Discharge Instructions Date of Service Apr 02, 2017. Admission Reason for Admission: numbness over right face, headache Discharge Discharge Diagnosis / Problem: complicated migraine - improving Discharge Goals Goal(s): Learn about illness, Diagnostic testing, Therapeutic intervention Activity Recommendations Activity Limitations: as noted below For the next 2-3 days, as the headache resolves, "light duty" - no heavy lifting , no heavy exertional activity. Best to [facility] until the headache resolves fully. . Instructions / Follow-Up Instructions / Follow-Up 1. Your numbness over the right tongue, right face, and right hand along with headache is most consistent with a "complicated migraine." Your symptoms are improving with treatment of the headache. Your MRI scan of the brain did NOT show evidence of a new stroke causing your symptoms. 2. To treat the headaches please do the following - * medrol dose pack - start TODAY 04/02/17 * verapamil 120mg once daily every day; start TOMORROW 04/03/17 * fioricet 1 capsule every 4 hours as needed for headache * zofran ODT 8mg every 6-8 hours as needed for nausea associated with headache 3. High blood pressure - * at discharge you will take the following - * verapamil 120mg once daily * metoprolol 12.5mg twice daily * lisinopril 10mg once daily 4. Please follow-up with a neurologist/headache specialist within 2-3 weeks. The care home can set you up with this. 5. See the medical staff assistant of the [facility] within 2 days. 6. Return to [facility] if - * the headache becomes severe again despite the above medications * you have persistent nausea and vomiting leading to dehydration etc * you develop any new neurological symptoms (weakness of a limb, numbness in new areas, difficulty speaking, etc) * you develop fever over 100.4 degrees Current Hospital Diet Patient's current hospital diet: Regular Diet Discharge Diet Recommended Diet: Regular Diet Procedures Procedures Performed: MRI brain - no evidence of a NEW stroke. Evidence of OLD strokes. 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 Lymes testing negative. Sed rate 2. Pending Studies Studies pending at discharge: no Laboratory Results Hemoglobin A1c Test 03/29/17 18:45 Range/Units Estimated Average Glucose 120 mg/dl Hemoglobin A1c 5.8 H 4.5-5.6 % Lipid Panel Test 03/30/17 05:58 Range/Units Triglycerides Level 73 0-150 mg/dl Cholesterol Level 143 0-200 mg/dl HDL Cholesterol 46 mg/dl Cholesterol/HDL Ratio 3.1 LDL Cholesterol, Calculated 82 mg/dl Medical Emergencies . Who to Call and When: Medical Emergencies: If at any time you feel your situation is an emergency, please call 911 immediately. . Non-Emergent Contact Non-Emergency issues call your: Specialist (care home medical staff assistant) Call Non-Emergent contact if: temperature is above 100.5, your pain is not controlled, your pain is worsening, your pain is unusual for you, your pain is concerning you, you have any medication questions . . "Provider Documentation" section prepared by Arturo Steinberg. . VTE Core Measure Inpt VTE Proph given/why not?: Unfractionated heparin SQ
[2017-04-02 14:25] VITALS: BP 113/71; PULSE 91; TEMP 36.4; O2SAT 94
--- NOTE | 2017-04-02 18:13 | Discharge Summary ---
Discharge Summary Date of Service Apr 02, 2017. 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 CT head - negative for acute stroke or ICH 2. MRI brain - FINDINGS: There is no mass, hematoma, midline shift, or acute infarct. The paranasal sinuses are clear. A few opacified left mastoid air cells. Old bilateral basal ganglia lacunar infarcts.. The ventricles and sulci demonstrate mild age-related involutional changes. Scattered foci of T2 hyperintensity seen within the periventricular and subcortical white matter are nonspecific but suggestive of mild microvascular ischemic changes. The major vascular flow voids at the skull base are well-maintained. Small old infarct within the right cerebellar hemisphere. 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 IMPRESSION: No significant change compared to the prior study. No acute intracranial abnormality. Old small infarcts as described above. 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 3. MRA brain - IMPRESSION: 1. No abrupt vessel cut off. 2. 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 4. MRA neck - IMPRESSION: 1. Mild stenosis of the origin of the right vertebral artery. 2. The remainder of the course of the right vertebral artery and the remaining cervical vessels are widely patent without significant stenosis, aneurysm, or focal vessel occlusion. 3. 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 Consultations: neurology - Fermin Quintana MD PT, OT Medication Reconciliation New Medications: Dsmbpssoqo-Bhxhsrpupdfwn-Fsuan (Fioricet) 1 Cap Cap 1 CAP PO Q4H PRN for headache, #30 CAP 0 Refills Methylprednisolone (Medrol Dosepak) 4 Mg Zachery 1 PKT PO UD for 6 Days, #1 PKT start 04/02/17 Ondansetron Odt (Zofran Odt) 8 Mg Soltab 8 MG SL Q6H PRN for Nausea, #15 TAB 0 Refills for nausea associated with headache Aspirin (Aspirin EC Low Dose) 81 Mg Ectab 81 MG PO QAM, #30 TABS 11 Refills for prevention of stroke Atorvastatin (Atorvastatin Calcium) 40 Mg Tab 40 MG PO QAM, #30 TAB 5 Refills Verapamil Hcl (Verapamil Hcl Er) 120 Mg Tab 120 MG PO QAM, #30 TAB 5 Refills for high blood pressure and prevention of headaches Changed Medications: Lisinopril (Prinivil) 20 Mg Tab 10 MG PO DAILY, #30 TABS 5 Refills (Changed from: 20 MG; BID; Refills: ) Metoprolol Tartrate (Lopressor) 25 Mg Tab 12.5 MG PO BID, #60 TABS 2 Refills (Changed from: 50 MG; Refills: ) Discontinued Medications: Amlodipine (Norvasc) 10 Mg Tab 10 MG PO DAILY, TAB Clopidogrel (Plavix) 75 Mg Tab 75 MG PO DAILY, TAB Hydralazine Hcl (Apresoline) 10 Mg Tab 10 MG PO BID, TAB Discharge Exam Physical Exam: General Appearance: WD/WN, no apparent distress ENT: pharynx normal Neck: no JVD Respiratory/Chest: lungs clear, no respiratory distress, no accessory muscle use Cardiovascular: regular rate, rhythm, no gallop, no murmur, normal peripheral pulses Abdomen / GI: normal bowel sounds, non tender, soft, no organomegaly Extremities: no pedal edema Neurologic/Psychiatric: 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 This was associated with a left-sided frontal headache. Denied any new visual changes, an increase in his chronic right-sided weakness, slurred speech or confusion. The patient has been prescribed Plavix but does not comply with this due to epistaxis. Initial examination revealed impairment to light touch on the right side of his face. There was also a question of left-sided eye ptosis. HOSPITAL COURSE: The patient underwent MRI brain which did NOT demonstrate an acute stroke or intracranial hemorrhage. MRA head & neck were normal with the exception of a stable, pre-existing 5mm left vertebral artery aneurysm; this was not contributing to his clinical picture. Sed rate was normal and lyme's testing was negative. He was seen in consult by neurology who felt he was suffering from a complicated migraine in light of his history of headaches (gets severe headaches about every 2 weeks) as well as the negative MRI brain. He was initiated on IV steroids along with abortive treatment with NSAIDs, fioricet, and other agents. Most agents were not helpful. Thus, he ultimately required a load of IV depakote for abortive treatment. Verapamil was started for migraine prophylaxis as well as for his HTN. With time his headache gradually improved. His left eye tearing, right hand numbness, and right facial numbness also improved. The possible ptosis of the left eye was not appreciated once admitted to the hospital; however, he did have tearing from that eye likely due to the migraine process. His nausea and emesis from the headache resolved and on day of discharge he was tolerating a regular diet. At time of transfer back to [facility] the following were recommended for his headaches - 1. medrol dosepack 2. verapamil SR 120mg once daily for headache prevention & HTN control 3. fioricet - 1 tab po q4h prn headache Unfortunately Mr. Valerio is NOT A CANDIDATE FOR TRIPTANS DUE TO PREVIOUS STROKE and HTN. He was made aware of this as he had used imitrex in the past. Other issues addressed - 1. HTN - he was on a complex regimen of meds at presentation. He will take metoprolol, lisinopril, and verapamil after discharge. 2. acute kidney injury - resolved with IV hydration. 3. He will take 81mg aspirin daily for secondary stroke prevention (had had issues with epistaxis from plavix in the past). Total Time Spent: Greater than 30 minutes This includes examination of the patient, discharge planning, medication reconciliation, and communication with other providers. Discharge Instructions Please refer to the electronic Patient Visit Report (Discharge Instructions) for additional information. Follow-Up 1. registered medical transcriptionist of [facility] within 2 days 2. recommend outpatient neurology follow-up within 2-3 weeks Additional Copies To Jerald Quintana M.D.; [facility]
== END 2017-04-02 17:38 | disposition home or self-care (01) ==
LOC: EDBD 17:42 → C.EDC 17:44 → C.MED 20:52 → EDBEDREQ 21:04 → ENRESERV 22:16
PROVIDERS: ADMIT Internal Medicine; ATTEND Internal Medicine
DX: G43.109 Migraine with aura, not intractable, without status migrainosus (principal); I69.351 Hemiplegia and hemiparesis following cerebral infarction affecting right dominant side; I10 Essential (primary) hypertension; E78.5 Hyperlipidemia, unspecified; E11.9 Type 2 diabetes mellitus without complications; N17.9 Acute kidney failure, unspecified; Z87.891 Personal history of nicotine dependence; Z79.02 Long term (current) use of antithrombotics/antiplatelets; Z79.899 Other long term (current) drug therapy